=== PATIENT | female | born 1970 | race Caucasian/White ===

== ENCOUNTER 2018-12-27 12:46 | Inpatient (IN) | payer OTHER ==
[2018-12-27] MEDS: SOD CHLORIDE 0.9% 1,000 ML IV ×2 (13:10→14:18)
[2018-12-27] MEDS: ONDANSETRON 4 MG INJ IV ×2 (13:10→21:44)
[2018-12-27 13:19] LABS: ADD MAN DIFF? NO
[2018-12-27 13:24] LABS: BASOPHILS % 0.2 % (0.0-2.0); HEMATOCRIT 46.3 % (37.0-47.0); HEMOGLOBIN 14.7 g/dl (12.0-16.0); LYMPHOCYTES # 1.3 10^3/ul (0.8-2.9); LYMPHOCYTES % 15.3 % (15.0-51.0); MEAN CORPUSCULAR HEMOGLOBIN 26.1 pg (29.0-33.0); MEAN CORPUSCULAR HGB CONC 31.7 g/dl (32.0-37.0); MEAN CORPUSCULAR VOLUME 82.1 fl (82.0-101.0); MEAN PLATELET VOLUME 10.8 fl (7.4-10.4); MONOCYTE # 0.7 10^3/ul (0.3-0.9); MONOCYTES % 7.9 % (0.0-11.0); NEUTROPHIL # 6.5 10^3/ul (1.6-7.5); NEUTROPHILS % 76.2 % (39.0-77.0); PLATELET COUNT 405 10^3/UL (140-415); RED BLOOD COUNT 5.64 10^6/ul (4.20-5.40); RED CELL DISTRIBUTION WIDTH 19.4 % (11.5-14.5)
[2018-12-27 13:24] LABS: WHITE BLOOD COUNT 8.5 10^3/ul (4.8-10.8)
[2018-12-27 13:43] LABS: ALANINE AMINOTRANSFERASE 58 IU/L (13-69); ALBUMIN 4.8 g/dl (3.3-4.9); ALKALINE PHOSPHATASE 126 IU/L (42-121); AMYLASE 80 U/L (11-123); ASPARTATE AMINO TRANSFERASE 23 IU/L (15-46); BILIRUBIN,INDIRECT 0.3 mg/dl (0-1.1); BILIRUBIN,TOTAL 0.3 mg/dl (0.2-1.3); BLOOD UREA NITROGEN 73 mg/dl (7-20); CALCIUM 10.2 mg/dl (8.4-10.2); CHLORIDE 58 mmol/L (97-110); CREATININE 1.81 mg/dl (0.44-1.00); Estimated GFR 30 mL/min (>60); GLUCOSE 154 mg/dl (70-220); LIPASE 108 U/L (23-300); SODIUM 135 mmol/L (135-144); TOTAL PROTEIN 10.1 g/dl (6.1-8.1)
[2018-12-27 13:44] LABS: INR 0.96; PARTIAL THROMBOPLASTIN TIME 26.4 Sec (23.0-35.0); PROTIME 12.9 Sec (11.9-14.9)
[2018-12-27 13:46] LABS: LACTIC ACID 2.3 mmol/L (0.5-2.0)
[2018-12-27 13:51] LABS: ANION GAP 27 (5-13)
[2018-12-27 13:53] LABS: CARBON DIOXIDE 50 mmol/L (21-31); POTASSIUM 2.7 mmol/L (3.5-5.1)
[2018-12-27 13:54] LABS: TROPONIN-I 0.032 ng/ml (0.000-0.120)
[2018-12-27] MEDS: morphine 4 MG/ML VIAL IV (14:01)
[2018-12-27] MEDS: CEFEPIME 2GM/50 ML (PMX) 50 ML IVPB (14:17)
[2018-12-27] MEDS ORDERED: METOCLOPRAMIDE 10 MG INJ (14:51)
[2018-12-27] MEDS: VANCOMYCIN 1 GM (PMX) 250 ML IVPB (14:57)
[2018-12-27 15:00] LABS: ADD UMIC YES; UR ASCORBIC ACID NEGATIVE (NEGATIVE); UR BACTERIA FEW /HPF (NONE SEEN); UR BILIRUBIN (Dip) NEGATIVE (NEGATIVE); UR BLOOD (Dip) 1+ mg/dL (NEGATIVE); UR CLARITY CLOUDY (CLEAR); UR COLOR YELLOW (YELLOW); UR GLUCOSE (Dip) NEGATIVE (NEGATIVE); UR KETONES (Dip) 2+ mg/dL (NEGATIVE); UR LEUKOCYTE ESTERASE (Dip) NEGATIVE Leu/ul (NEGATIVE); UR MUCUS FEW /HPF (NONE SEEN); UR NITRITE (Dip) NEGATIVE (NEGATIVE); UR RBC 11 /HPF (0-5); UR SPECIFIC GRAVITY (Dip) 1.016 (1.003-1.030); UR SQUAMOUS EPITHELIAL CELL FEW /HPF (FEW); UR TOTAL PROTEIN (Dip) 2+ mg/dl (NEGATIVE); UR UROBILINOGEN (Dip) NEGATIVE (NEGATIVE); UR WBC 5 /HPF (0-5)
[2018-12-27] MEDS: METOCLOPRAMIDE 10 MG INJ IV (15:35)
[2018-12-27] MEDS ORDERED: NACL 0.9% 3 ML SYG IV (18:00)
[2018-12-27] MEDS ORDERED: ACETAMINOPHEN 325 MG TAB PO (19:00)
[2018-12-27] MEDS ORDERED: ONDANSETRON 4 MG INJ IV (19:00)
[2018-12-27] MEDS: POTASSIUM CHLORIDE (SR) 20 MEQ TAB PO (19:35)
[2018-12-27] MEDS: POTASSIUM CHLORIDE 100 ML IVPB ×3 (19:35→22:13)
[2018-12-27] MEDS: DEXTROSE 5%-0.45% NACL 1,000 ML IV (19:43)
[2018-12-27] MEDS: FAMOTIDINE 20 MG TAB PO (21:00)
[2018-12-28] MEDS: DEXTROSE 5%-0.45% NACL 1,000 ML IV ×6 (01:41→20:20)
[2018-12-28 06:17] LABS: ADD MAN DIFF? NO
[2018-12-28 06:20] LABS: WHITE BLOOD COUNT 8.7 10^3/ul (4.8-10.8)
[2018-12-28 06:20] LABS: BASOPHILS % 0.2 % (0.0-2.0); EOSINOPHILS # 0.1 10^3/ul (0.0-0.5); EOSINOPHILS % 1.2 % (0.0-7.0); HEMATOCRIT 38.1 % (37.0-47.0); HEMOGLOBIN 11.9 g/dl (12.0-16.0); LYMPHOCYTES # 1.5 10^3/ul (0.8-2.9); LYMPHOCYTES % 16.9 % (15.0-51.0); MEAN CORPUSCULAR HEMOGLOBIN 26.1 pg (29.0-33.0); MEAN CORPUSCULAR HGB CONC 31.2 g/dl (32.0-37.0); MEAN CORPUSCULAR VOLUME 83.6 fl (82.0-101.0); MEAN PLATELET VOLUME 11.2 fl (7.4-10.4); MONOCYTE # 0.8 10^3/ul (0.3-0.9); MONOCYTES % 8.7 % (0.0-11.0); NEUTROPHIL # 6.3 10^3/ul (1.6-7.5); NEUTROPHILS % 72.5 % (39.0-77.0); PLATELET COUNT 330 10^3/UL (140-415); RED BLOOD COUNT 4.56 10^6/ul (4.20-5.40); RED CELL DISTRIBUTION WIDTH 19.8 % (11.5-14.5)
[2018-12-28 06:41] LABS: ALANINE AMINOTRANSFERASE 44 IU/L (13-69); ALBUMIN 3.8 g/dl (3.3-4.9); ALBUMIN/GLOBULIN RATIO 0.86; ALKALINE PHOSPHATASE 90 IU/L (42-121); ASPARTATE AMINO TRANSFERASE 19 IU/L (15-46); BILIRUBIN,INDIRECT 0.2 mg/dl (0-1.1); BILIRUBIN,TOTAL 0.2 mg/dl (0.2-1.3); BLOOD UREA NITROGEN 48 mg/dl (7-20); CALCIUM 9.1 mg/dl (8.4-10.2); CHLORIDE 78 mmol/L (97-110); CREATININE 1.13 mg/dl (0.44-1.00); Estimated GFR 51 mL/min (>60); GLUCOSE 170 mg/dl (70-220); SODIUM 138 mmol/L (135-144); TOTAL PROTEIN 8.2 g/dl (6.1-8.1)
[2018-12-28 06:44] LABS: POTASSIUM 2.5 mmol/L (3.5-5.1)
[2018-12-28 06:48] LABS: HEMOGLOBIN A1C 5.4 % (0-5.9)
[2018-12-28 06:48] LABS: ANION GAP 9 (5-13)
[2018-12-28 06:49] LABS: CARBON DIOXIDE 51 mmol/L (21-31)
[2018-12-28] MEDS: FAMOTIDINE 20 MG TAB PO ×2 (08:26→21:00)
[2018-12-28] MEDS: SOD CHLORIDE 0.9% 1,000 ML IV ×2 (08:26→13:15)
[2018-12-28] MEDS: ONDANSETRON 4 MG INJ IV ×3 (08:26→21:54)
[2018-12-28] MEDS: POTASSIUM CHLORIDE 100 ML IVPB ×6 (09:11→23:50)
[2018-12-28 09:23] LABS: MAGNESIUM 2.7 mg/dl (1.7-2.5)
[2018-12-28] MEDS ORDERED: IOHEXOL 14.3 MG(I)/ML (ADULT) BTL PO (09:30)
[2018-12-28] MEDS ORDERED: POTASSIUM CHLORIDE 100 ML IVPB (10:00)
[2018-12-28] MEDS: LORAZEPAM 2 MG INJ IV ×2 (10:06→16:45)
[2018-12-28 15:32] LABS: BLOOD UREA NITROGEN 35 mg/dl (7-20); CALCIUM 8.6 mg/dl (8.4-10.2); CHLORIDE 86 mmol/L (97-110); CREATININE 0.96 mg/dl (0.44-1.00); Estimated GFR > 60 mL/min (>60); GLUCOSE 113 mg/dl (70-220); SODIUM 137 mmol/L (135-144)
[2018-12-28 15:53] LABS: ANION GAP 9 (5-13)
[2018-12-28 15:55] LABS: CARBON DIOXIDE 42 mmol/L (21-31); POTASSIUM 2.9 mmol/L (3.5-5.1)
[2018-12-28] MEDS: SOD CHLORIDE 0.9% 100 ML (17:22)
[2018-12-28] MEDS: IOHEXOL 300MG/ML 150 ML BTL (17:22)
[2018-12-28] MEDS: IOHEXOL 14.3 MG(I)/ML (ADULT) BTL PO (18:34)
[2018-12-28] MEDS: PIPER-TAZO 3.375 GM IV (PMX) 100 ML IVPB (18:58)
[2018-12-28] MEDS: metroNIDAZOLE 500 MG/NS (PMX) 100 ML IVPB (22:29)
[2018-12-29] MEDS: LORAZEPAM 2 MG INJ IV ×2 (00:19→15:28)
[2018-12-29] MEDS: DEXTROSE 5%-0.45% NACL 1,000 ML IV ×3 (03:00→14:03)
[2018-12-29] MEDS: PIPER-TAZO 3.375 GM IV (PMX) 100 ML IVPB ×3 (05:06→21:00)
[2018-12-29] MEDS: ONDANSETRON 4 MG INJ IV ×2 (05:08→20:58)
[2018-12-29] MEDS: metroNIDAZOLE 500 MG/NS (PMX) 100 ML IVPB ×3 (05:52→21:56)
[2018-12-29 06:19] LABS: ADD MAN DIFF? NO
[2018-12-29 06:22] LABS: BASOPHILS % 0.5 % (0.0-2.0); EOSINOPHILS # 0.4 10^3/ul (0.0-0.5); EOSINOPHILS % 6.6 % (0.0-7.0); HEMATOCRIT 36.4 % (37.0-47.0); HEMOGLOBIN 11.1 g/dl (12.0-16.0); LYMPHOCYTES # 1.1 10^3/ul (0.8-2.9); LYMPHOCYTES % 17.1 % (15.0-51.0); MEAN CORPUSCULAR HEMOGLOBIN 26.1 pg (29.0-33.0); MEAN CORPUSCULAR HGB CONC 30.5 g/dl (32.0-37.0); MEAN CORPUSCULAR VOLUME 85.4 fl (82.0-101.0); MONOCYTE # 0.6 10^3/ul (0.3-0.9); MONOCYTES % 8.5 % (0.0-11.0); NEUTROPHIL # 4.4 10^3/ul (1.6-7.5); NEUTROPHILS % 66.8 % (39.0-77.0); PLATELET COUNT 268 10^3/UL (140-415); RED BLOOD COUNT 4.26 10^6/ul (4.20-5.40); RED CELL DISTRIBUTION WIDTH 19.8 % (11.5-14.5)
[2018-12-29 06:22] LABS: WHITE BLOOD COUNT 6.6 10^3/ul (4.8-10.8)
[2018-12-29 07:00] LABS: BLOOD UREA NITROGEN 25 mg/dl (7-20); CALCIUM 8.8 mg/dl (8.4-10.2); CHLORIDE 90 mmol/L (97-110); CREATININE 0.94 mg/dl (0.44-1.00); Estimated GFR > 60 mL/min (>60); GLUCOSE 143 mg/dl (70-220); POTASSIUM 3.2 mmol/L (3.5-5.1); SODIUM 136 mmol/L (135-144)
[2018-12-29 07:07] LABS: ANION GAP 9 (5-13)
[2018-12-29 07:11] LABS: CARBON DIOXIDE 37 mmol/L (21-31)
[2018-12-29] MEDS: FAMOTIDINE 20 MG TAB PO ×2 (08:44→20:03)
[2018-12-29] MEDS: POTASSIUM CHLORIDE 100 ML IVPB ×2 (09:18→11:37)
[2018-12-30] MEDS: DEXTROSE 5%-0.45% NACL 1,000 ML IV ×4 (00:12→21:58)
[2018-12-30] MEDS: PIPER-TAZO 3.375 GM IV (PMX) 100 ML IVPB ×3 (05:00→21:59)
[2018-12-30] MEDS: ONDANSETRON 4 MG INJ IV ×5 (05:39→22:15)
[2018-12-30] MEDS: metroNIDAZOLE 500 MG/NS (PMX) 100 ML IVPB ×3 (05:41→21:59)
[2018-12-30] MEDS: FAMOTIDINE 20 MG TAB PO ×2 (09:00→21:00)
[2018-12-30] MEDS: morphine 2 MG INJ IV ×3 (09:52→22:23)
[2018-12-30 11:01] LABS: ANION GAP 5 (5-13); BLOOD UREA NITROGEN 17 mg/dl (7-20); CALCIUM 8.9 mg/dl (8.4-10.2); CARBON DIOXIDE 37 mmol/L (21-31); CHLORIDE 92 mmol/L (97-110); CREATININE 0.84 mg/dl (0.44-1.00); Estimated GFR > 60 mL/min (>60); GLUCOSE 126 mg/dl (70-220); POTASSIUM 3.1 mmol/L (3.5-5.1); SODIUM 134 mmol/L (135-144)
[2018-12-30] MEDS: LIDOCAINE 2% (SDV) 5 ML INJ (12:14)
[2018-12-30] MEDS: PROPOFOL 20 ML (12:14)
[2018-12-30] MEDS ORDERED: ACETAMINOPHEN 500 MG TAB PO (12:30)
[2018-12-30] MEDS ORDERED: ALBUTEROL 0.083% (NEB) 2.5 MG/3 ML AMP HHN (12:30)
[2018-12-30] MEDS ORDERED: FENTAnyl 50 MCG/ML VIAL IV (12:30)
[2018-12-30] MEDS: POTASSIUM CHLORIDE 100 ML IVPB ×2 (21:58→21:59)
[2018-12-31] MEDS ORDERED: METOCLOPRAMIDE 10 MG INJ IV (01:00)
[2018-12-31] MEDS: DEXTROSE 5%-0.45% NACL 1,000 ML IV ×4 (01:46→21:17)
[2018-12-31] MEDS: ONDANSETRON 4 MG INJ IV ×3 (05:49→21:17)
[2018-12-31] MEDS: PIPER-TAZO 3.375 GM IV (PMX) 100 ML IVPB ×3 (05:49→22:00)
[2018-12-31] MEDS: metroNIDAZOLE 500 MG/NS (PMX) 100 ML IVPB ×3 (05:49→21:16)
[2018-12-31 06:18] LABS: ANION GAP 3 (5-13); BLOOD UREA NITROGEN 11 mg/dl (7-20); CALCIUM 8.8 mg/dl (8.4-10.2); CARBON DIOXIDE 35 mmol/L (21-31); CHLORIDE 98 mmol/L (97-110); CREATININE 0.87 mg/dl (0.44-1.00); Estimated GFR > 60 mL/min (>60); GLUCOSE 136 mg/dl (70-220); PHOSPHORUS 3.3 mg/dl (2.5-4.9); POTASSIUM 3.8 mmol/L (3.5-5.1); SODIUM 136 mmol/L (135-144)
[2018-12-31] MEDS: FAMOTIDINE 20 MG TAB PO ×2 (08:23→21:17)
[2018-12-31] MEDS: BARIUM SULFATE 135 ML (E-Z HD) PO (12:31)
[2019-01-01] MEDS: DEXTROSE 5%-0.45% NACL 1,000 ML IV ×4 (04:11→21:15)
[2019-01-01] MEDS: metroNIDAZOLE 500 MG/NS (PMX) 100 ML IVPB ×3 (05:45→21:07)
[2019-01-01] MEDS: PIPER-TAZO 3.375 GM IV (PMX) 100 ML IVPB ×3 (06:41→23:02)
[2019-01-01] MEDS: ONDANSETRON 4 MG INJ IV ×2 (08:36→14:46)
[2019-01-01] MEDS: FAMOTIDINE 20 MG TAB PO ×2 (08:36→21:07)
[2019-01-02 05:42] LABS: ANION GAP 8 (5-13); BLOOD UREA NITROGEN 9 mg/dl (7-20); CALCIUM 8.5 mg/dl (8.4-10.2); CARBON DIOXIDE 37 mmol/L (21-31); CHLORIDE 92 mmol/L (97-110); CREATININE 0.68 mg/dl (0.44-1.00); Estimated GFR > 60 mL/min (>60); GLUCOSE 148 mg/dl (70-220); MAGNESIUM 1.9 mg/dl (1.7-2.5); PHOSPHORUS 2.9 mg/dl (2.5-4.9); SODIUM 137 mmol/L (135-144)
[2019-01-02 05:48] LABS: POTASSIUM 2.7 mmol/L (3.5-5.1)
[2019-01-02] MEDS: metroNIDAZOLE 500 MG/NS (PMX) 100 ML IVPB ×2 (06:05→15:00)
[2019-01-02] MEDS: ONDANSETRON 4 MG INJ IV ×2 (06:10→09:03)
[2019-01-02] MEDS: POTASSIUM CHLORIDE 20 MEQ POWDER FOR ORAL SOLN PO (06:17)
[2019-01-02] MEDS: DEXTROSE 5%-0.45% NACL 1,000 ML IV ×3 (06:19→21:00)
[2019-01-02] MEDS: PIPER-TAZO 3.375 GM IV (PMX) 100 ML IVPB ×3 (07:02→21:00)
[2019-01-02] MEDS: FAMOTIDINE 20 MG TAB PO ×2 (09:03→20:53)
[2019-01-02] MEDS: DIATR MEGLU/DIATRIZOATE SODIUM 120 ML BTL (09:38)
[2019-01-02] MEDS: BARIUM SULFATE 135 ML (E-Z HD) PO (09:40)
[2019-01-02] MEDS: LIDOCAINE 1% (MPF) 5 ML VIAL SC (12:00)
[2019-01-02] MEDS: POTASSIUM CHLORIDE 20 MEQ POWDER FOR ORAL SOLN NGT (12:00)
[2019-01-02] MEDS: POTASSIUM CHLORIDE 100 ML IVPB ×2 (16:52→20:53)
[2019-01-02 19:17] LABS: CARCINOEMBRYONIC ANTIGEN 1.8 ng/ml (0.0-5.0)
[2019-01-02 19:20] LABS: CANCER ANTIGEN 19-9 14.5 U/ml (0.0-37.0)
[2019-01-03] MEDS: DEXTROSE 5%-0.45% NACL 1,000 ML IV ×4 (03:56→21:06)
[2019-01-03] MEDS: PIPER-TAZO 3.375 GM IV (PMX) 100 ML IVPB ×3 (05:45→21:05)
[2019-01-03 06:53] LABS: ANION GAP 5 (5-13); BLOOD UREA NITROGEN 10 mg/dl (7-20); CALCIUM 8.7 mg/dl (8.4-10.2); CARBON DIOXIDE 38 mmol/L (21-31); CHLORIDE 94 mmol/L (97-110); CREATININE 0.61 mg/dl (0.44-1.00); Estimated GFR > 60 mL/min (>60); GLUCOSE 132 mg/dl (70-220); SODIUM 137 mmol/L (135-144)
[2019-01-03 07:09] LABS: POTASSIUM 2.9 mmol/L (3.5-5.1)
[2019-01-03] MEDS: METHYLNALTREXONE 12 MG/0.6 ML VIAL SC (08:30)
[2019-01-03] MEDS: FAMOTIDINE 20 MG TAB PO ×2 (09:03→21:05)
[2019-01-03] MEDS: POTASSIUM CHLORIDE 100 ML IVPB ×2 (11:20→16:18)
[2019-01-03] MEDS: PHENOL 1.4% SOLN 180 ML BTL MT (21:23)
[2019-01-04] MEDS: DEXTROSE 5%-0.45% NACL 1,000 ML IV (04:14)
[2019-01-04] MEDS: PIPER-TAZO 3.375 GM IV (PMX) 100 ML IVPB ×3 (05:06→21:51)
[2019-01-04 06:54] LABS: BLOOD UREA NITROGEN 13 mg/dl (7-20); CALCIUM 8.9 mg/dl (8.4-10.2); CHLORIDE 93 mmol/L (97-110); CREATININE 0.62 mg/dl (0.44-1.00); Estimated GFR > 60 mL/min (>60); GLUCOSE 128 mg/dl (70-220); SODIUM 139 mmol/L (135-144)
[2019-01-04 06:59] LABS: POTASSIUM 2.6 mmol/L (3.5-5.1)
[2019-01-04 08:01] LABS: ANION GAP 8 (5-13)
[2019-01-04 08:03] LABS: CARBON DIOXIDE 38 mmol/L (21-31)
[2019-01-04] MEDS: D5W-0.45 NACL + KCL 40 MEQ 1,000 ML IV ×2 (09:30→16:10)
[2019-01-04] MEDS: POTASSIUM CHLORIDE 100 ML IVPB ×2 (09:38→12:12)
[2019-01-04] MEDS: POTASSIUM CHLORIDE (SR) 20 MEQ TAB PO (09:38)
[2019-01-04] MEDS: FAMOTIDINE 20 MG TAB PO ×2 (09:38→20:28)
[2019-01-05] MEDS: D5W-0.45 NACL + KCL 40 MEQ 1,000 ML IV ×5 (00:52→19:24)
[2019-01-05 06:27] LABS: BLOOD UREA NITROGEN 15 mg/dl (7-20); CALCIUM 8.8 mg/dl (8.4-10.2); CHLORIDE 95 mmol/L (97-110); CREATININE 0.64 mg/dl (0.44-1.00); Estimated GFR > 60 mL/min (>60); GLUCOSE 133 mg/dl (70-220); POTASSIUM 3.2 mmol/L (3.5-5.1); SODIUM 139 mmol/L (135-144)
[2019-01-05] MEDS: PIPER-TAZO 3.375 GM IV (PMX) 100 ML IVPB ×3 (06:31→22:31)
[2019-01-05 06:36] LABS: ANION GAP 5 (5-13); CARBON DIOXIDE 39 mmol/L (21-31)
[2019-01-05] MEDS: METHYLNALTREXONE 12 MG/0.6 ML VIAL SC (08:30)
[2019-01-05] MEDS: FAMOTIDINE 20 MG TAB PO ×2 (09:16→20:59)
[2019-01-05] MEDS: IOHEXOL 14.3 MG(I)/ML (ADULT) BTL PO (15:37)
[2019-01-05] MEDS: SOD CHLORIDE 0.9% 100 ML (17:02)
[2019-01-05] MEDS: IOHEXOL 300MG/ML 150 ML BTL (17:03)
[2019-01-06] MEDS: D5W-0.45 NACL + KCL 40 MEQ 1,000 ML IV ×4 (03:01→21:30)
[2019-01-06] MEDS: PIPER-TAZO 3.375 GM IV (PMX) 100 ML IVPB (05:23)
[2019-01-06 05:26] LABS: ANION GAP 10 (5-13); BLOOD UREA NITROGEN 13 mg/dl (7-20); CALCIUM 8.8 mg/dl (8.4-10.2); CARBON DIOXIDE 35 mmol/L (21-31); CHLORIDE 96 mmol/L (97-110); CREATININE 0.61 mg/dl (0.44-1.00); Estimated GFR > 60 mL/min (>60); GLUCOSE 136 mg/dl (70-220); POTASSIUM 3.8 mmol/L (3.5-5.1); SODIUM 141 mmol/L (135-144)
[2019-01-06] MEDS ORDERED: PANTOPRAZOLE 40 MG INJ (08:37)
[2019-01-06] MEDS: FAMOTIDINE 20 MG TAB PO (09:00)
[2019-01-06] MEDS: PANTOPRAZOLE 40 MG INJ IV ×2 (09:10→18:08)
[2019-01-06] MEDS: ONDANSETRON 4 MG INJ IV (12:43)
[2019-01-07] MEDS: PANTOPRAZOLE 40 MG INJ IV ×2 (05:23→18:25)
[2019-01-07] MEDS: D5W-0.45 NACL + KCL 40 MEQ 1,000 ML IV ×4 (05:24→23:12)
[2019-01-07] MEDS: METHYLNALTREXONE 12 MG/0.6 ML VIAL SC (08:30)
[2019-01-07] MEDS ORDERED: PROPOFOL 20 ML ×2 (15:43→16:38)
[2019-01-07] MEDS ORDERED: FENTAnyl 50 MCG/ML VIAL (15:43)
[2019-01-07] MEDS ORDERED: MEPERIDINE 25 MG INJ IV (16:30)
[2019-01-07] MEDS ORDERED: HYDROmorphONE 1 MG/5 ML IV SYRINGE IV ×3 (16:30)
[2019-01-07] MEDS ORDERED: DIPHENHYDRAMINE 50 MG INJ IV (16:30)
[2019-01-07] MEDS ORDERED: LABETALOL HCL 20MG INJ IV (16:30)
[2019-01-07] MEDS ORDERED: hydrALAzine 20 MG INJ IV (16:30)
[2019-01-07] MEDS ORDERED: METOCLOPRAMIDE 10 MG INJ (16:50)
[2019-01-07] MEDS ORDERED: ONDANSETRON 4 MG INJ (16:50)
[2019-01-07] MEDS ORDERED: SUCCINYLCHOLINE CHLORIDE 100 MG/5 ML SYG IV (16:52)
[2019-01-07] MEDS: ONDANSETRON 4 MG INJ IV ×2 (17:55→20:30)
[2019-01-07] MEDS: morphine LIQ (10 MG/5 ML) CUP PO (20:26)
[2019-01-08] MEDS: morphine 2 MG INJ IV ×3 (04:37→20:09)
[2019-01-08 05:14] LABS: ADD MAN DIFF? NO
[2019-01-08 05:16] LABS: BASOPHILS % 0.2 % (0.0-2.0); EOSINOPHILS % 0.6 % (0.0-7.0); HEMATOCRIT 33.6 % (37.0-47.0); HEMOGLOBIN 10.5 g/dl (12.0-16.0); LYMPHOCYTES # 0.8 10^3/ul (0.8-2.9); LYMPHOCYTES % 14.2 % (15.0-51.0); MEAN CORPUSCULAR HEMOGLOBIN 26.6 pg (29.0-33.0); MEAN CORPUSCULAR HGB CONC 31.3 g/dl (32.0-37.0); MEAN CORPUSCULAR VOLUME 85.1 fl (82.0-101.0); MEAN PLATELET VOLUME 9.9 fl (7.4-10.4); MONOCYTE # 0.3 10^3/ul (0.3-0.9); MONOCYTES % 5.1 % (0.0-11.0); NEUTROPHIL # 4.3 10^3/ul (1.6-7.5); NEUTROPHILS % 79.3 % (39.0-77.0); PLATELET COUNT 285 10^3/UL (140-415); RED BLOOD COUNT 3.95 10^6/ul (4.20-5.40); RED CELL DISTRIBUTION WIDTH 20.5 % (11.5-14.5)
[2019-01-08 05:16] LABS: WHITE BLOOD COUNT 5.4 10^3/ul (4.8-10.8)
[2019-01-08] MEDS: PANTOPRAZOLE 40 MG INJ IV ×2 (05:33→17:56)
[2019-01-08 05:36] LABS: MAGNESIUM 1.5 mg/dl (1.7-2.5)
[2019-01-08 05:38] LABS: ANION GAP 11 (5-13); BLOOD UREA NITROGEN 12 mg/dl (7-20); CALCIUM 8.9 mg/dl (8.4-10.2); CARBON DIOXIDE 24 mmol/L (21-31); CHLORIDE 103 mmol/L (97-110); CREATININE 0.53 mg/dl (0.44-1.00); Estimated GFR > 60 mL/min (>60); GLUCOSE 128 mg/dl (70-220); POTASSIUM 5.3 mmol/L (3.5-5.1); SODIUM 138 mmol/L (135-144)
[2019-01-08] MEDS: ONDANSETRON 4 MG INJ IV ×2 (05:38→20:10)
[2019-01-08] MEDS: D5W-0.45 NACL + KCL 40 MEQ 1,000 ML IV (05:39)
[2019-01-08] MEDS: METOCLOPRAMIDE 10 MG INJ IV ×2 (11:52→18:00)
[2019-01-08] MEDS: DEXTROSE 5%-0.45% NACL 1,000 ML IV (12:00)
[2019-01-08] MEDS: MAGNESIUM SULFATE 2 GM/50 ML 50 ML IVPB (13:39)
[2019-01-09] MEDS: DEXTROSE 5%-0.45% NACL 1,000 ML IV ×4 (00:26→20:47)
[2019-01-09] MEDS: morphine 2 MG INJ IV ×2 (00:30→19:45)
[2019-01-09] MEDS: PANTOPRAZOLE 40 MG INJ IV ×2 (05:34→17:25)
[2019-01-09] MEDS: METOCLOPRAMIDE 10 MG INJ IV ×4 (05:36→17:26)
[2019-01-09] MEDS: METHYLNALTREXONE 12 MG/0.6 ML VIAL SC (08:04)
[2019-01-09] MEDS: ONDANSETRON 4 MG INJ IV (20:44)
[2019-01-10] MEDS: METOCLOPRAMIDE 10 MG INJ IV ×4 (00:10→18:00)
[2019-01-10 06:12] LABS: ADD MAN DIFF? NO
[2019-01-10 06:22] LABS: WHITE BLOOD COUNT 5.4 10^3/ul (4.8-10.8)
[2019-01-10 06:22] LABS: BASOPHILS % 0.4 % (0.0-2.0); EOSINOPHILS # 0.1 10^3/ul (0.0-0.5); HEMATOCRIT 31.2 % (37.0-47.0); LYMPHOCYTES # 1.3 10^3/ul (0.8-2.9); LYMPHOCYTES % 24.4 % (15.0-51.0); MEAN CORPUSCULAR HEMOGLOBIN 26.5 pg (29.0-33.0); MEAN CORPUSCULAR HGB CONC 32.1 g/dl (32.0-37.0); MEAN CORPUSCULAR VOLUME 82.5 fl (82.0-101.0); MEAN PLATELET VOLUME 9.8 fl (7.4-10.4); MONOCYTE # 0.5 10^3/ul (0.3-0.9); MONOCYTES % 9.7 % (0.0-11.0); NEUTROPHIL # 3.4 10^3/ul (1.6-7.5); NEUTROPHILS % 62.9 % (39.0-77.0); PLATELET COUNT 261 10^3/UL (140-415); RED BLOOD COUNT 3.78 10^6/ul (4.20-5.40); RED CELL DISTRIBUTION WIDTH 20.2 % (11.5-14.5)
[2019-01-10] MEDS: PANTOPRAZOLE 40 MG INJ IV ×2 (06:27→18:00)
[2019-01-10 07:03] LABS: ALBUMIN 2.8 g/dl (3.3-4.9); ANION GAP 11 (5-13); BLOOD UREA NITROGEN 15 mg/dl (7-20); CALCIUM 8.6 mg/dl (8.4-10.2); CARBON DIOXIDE 22 mmol/L (21-31); CHLORIDE 102 mmol/L (97-110); CREATININE 0.51 mg/dl (0.44-1.00); GLUCOSE 103 mg/dl (70-220); MAGNESIUM 1.9 mg/dl (1.7-2.5); POTASSIUM 4.2 mmol/L (3.5-5.1); SODIUM 135 mmol/L (135-144)
[2019-01-10] MEDS: DEXTROSE 5%-0.45% NACL 1,000 ML IV ×2 (07:42→18:52)
[2019-01-10] MEDS: ONDANSETRON 4 MG INJ IV (16:57)
[2019-01-11 05:27] LABS: ADD MAN DIFF? NO
[2019-01-11 05:29] LABS: BASOPHILS % 0.4 % (0.0-2.0); EOSINOPHILS # 0.1 10^3/ul (0.0-0.5); EOSINOPHILS % 1.7 % (0.0-7.0); HEMATOCRIT 30.7 % (37.0-47.0); HEMOGLOBIN 10.1 g/dl (12.0-16.0); LYMPHOCYTES # 1.3 10^3/ul (0.8-2.9); LYMPHOCYTES % 24.3 % (15.0-51.0); MEAN CORPUSCULAR HEMOGLOBIN 26.5 pg (29.0-33.0); MEAN CORPUSCULAR HGB CONC 32.9 g/dl (32.0-37.0); MEAN CORPUSCULAR VOLUME 80.6 fl (82.0-101.0); MEAN PLATELET VOLUME 9.7 fl (7.4-10.4); MONOCYTE # 0.5 10^3/ul (0.3-0.9); MONOCYTES % 9.1 % (0.0-11.0); NEUTROPHIL # 3.5 10^3/ul (1.6-7.5); NEUTROPHILS % 64.1 % (39.0-77.0); PLATELET COUNT 281 10^3/UL (140-415); RED BLOOD COUNT 3.81 10^6/ul (4.20-5.40)
[2019-01-11 05:29] LABS: WHITE BLOOD COUNT 5.4 10^3/ul (4.8-10.8)
[2019-01-11] MEDS: METOCLOPRAMIDE 10 MG INJ IV ×4 (05:43→18:09)
[2019-01-11] MEDS: DEXTROSE 5%-0.45% NACL 1,000 ML IV ×2 (05:43→18:10)
[2019-01-11] MEDS: PANTOPRAZOLE 40 MG INJ IV ×2 (05:43→18:09)
[2019-01-11 05:55] LABS: ANION GAP 8 (5-13); BLOOD UREA NITROGEN 15 mg/dl (7-20); CALCIUM 8.9 mg/dl (8.4-10.2); CARBON DIOXIDE 22 mmol/L (21-31); CHLORIDE 107 mmol/L (97-110); CREATININE 0.55 mg/dl (0.44-1.00); GLUCOSE 115 mg/dl (70-220); MAGNESIUM 1.9 mg/dl (1.7-2.5); POTASSIUM 3.4 mmol/L (3.5-5.1); SODIUM 137 mmol/L (135-144)
[2019-01-11] MEDS: METHYLNALTREXONE 12 MG/0.6 ML VIAL SC (08:30)
[2019-01-11] MEDS: ONDANSETRON 4 MG INJ IV (09:07)
[2019-01-11] MEDS: POTASSIUM CHLORIDE 100 ML IVPB ×2 (11:05→12:22)
[2019-01-11] MEDS: BISACODYL 10 MG SUPP PR (12:22)
[2019-01-12] MEDS: METOCLOPRAMIDE 10 MG INJ IV ×4 (00:02→21:33)
[2019-01-12] MEDS: DEXTROSE 5%-0.45% NACL 1,000 ML IV ×2 (02:49→13:16)
[2019-01-12 05:09] LABS: ADD MAN DIFF? NO
[2019-01-12 05:19] LABS: WHITE BLOOD COUNT 5.7 10^3/ul (4.8-10.8)
[2019-01-12 05:19] LABS: BASOPHILS % 0.5 % (0.0-2.0); EOSINOPHILS # 0.1 10^3/ul (0.0-0.5); EOSINOPHILS % 1.6 % (0.0-7.0); HEMATOCRIT 29.5 % (37.0-47.0); HEMOGLOBIN 9.9 g/dl (12.0-16.0); LYMPHOCYTES # 1.1 10^3/ul (0.8-2.9); MEAN CORPUSCULAR HGB CONC 33.6 g/dl (32.0-37.0); MEAN CORPUSCULAR VOLUME 80.6 fl (82.0-101.0); MONOCYTE # 0.6 10^3/ul (0.3-0.9); NEUTROPHIL # 3.9 10^3/ul (1.6-7.5); NEUTROPHILS % 67.7 % (39.0-77.0); PLATELET COUNT 274 10^3/UL (140-415); RED BLOOD COUNT 3.66 10^6/ul (4.20-5.40); RED CELL DISTRIBUTION WIDTH 19.9 % (11.5-14.5)
[2019-01-12 05:39] LABS: ANION GAP 9 (5-13); BLOOD UREA NITROGEN 16 mg/dl (7-20); CARBON DIOXIDE 21 mmol/L (21-31); CHLORIDE 107 mmol/L (97-110); CREATININE 0.56 mg/dl (0.44-1.00); GLUCOSE 121 mg/dl (70-220); MAGNESIUM 1.9 mg/dl (1.7-2.5); PHOSPHORUS 3.8 mg/dl (2.5-4.9); POTASSIUM 3.7 mmol/L (3.5-5.1); SODIUM 137 mmol/L (135-144)
[2019-01-12] MEDS: PANTOPRAZOLE 40 MG INJ IV ×2 (05:45→21:33)
[2019-01-12] MEDS ORDERED: TPN 1,000 ML IV (14:42)
[2019-01-12 15:04] LABS: TRIGLYCERIDES 91 mg/dl (0-149)
[2019-01-12 15:34] LABS: PREALBUMIN 9.9 mg/dl (17.6-36.0)
[2019-01-12] MEDS: ACCU-CHEK XX ×2 (20:00→21:00)
[2019-01-12] MEDS: TPN 1,000 ML IV (21:34)
[2019-01-13] MEDS: ACCU-CHEK XX ×6 (01:00→21:00)
[2019-01-13] MEDS: METOCLOPRAMIDE 10 MG INJ IV ×4 (01:06→18:58)
[2019-01-13] MEDS: ONDANSETRON 4 MG INJ IV (02:17)
[2019-01-13] MEDS: PANTOPRAZOLE 40 MG INJ IV ×2 (05:19→18:57)
[2019-01-13 05:31] LABS: ADD MAN DIFF? NO
[2019-01-13 05:57] LABS: BASOPHILS % 0.5 % (0.0-2.0); EOSINOPHILS # 0.2 10^3/ul (0.0-0.5); EOSINOPHILS % 3.5 % (0.0-7.0); HEMATOCRIT 30.5 % (37.0-47.0); HEMOGLOBIN 9.9 g/dl (12.0-16.0); LYMPHOCYTES # 1.5 10^3/ul (0.8-2.9); LYMPHOCYTES % 24.9 % (15.0-51.0); MEAN CORPUSCULAR HEMOGLOBIN 26.7 pg (29.0-33.0); MEAN CORPUSCULAR HGB CONC 32.5 g/dl (32.0-37.0); MEAN CORPUSCULAR VOLUME 82.2 fl (82.0-101.0); MEAN PLATELET VOLUME 9.8 fl (7.4-10.4); MONOCYTE # 0.6 10^3/ul (0.3-0.9); MONOCYTES % 10.4 % (0.0-11.0); NEUTROPHIL # 3.7 10^3/ul (1.6-7.5); NEUTROPHILS % 60.4 % (39.0-77.0); PLATELET COUNT 299 10^3/UL (140-415); RED BLOOD COUNT 3.71 10^6/ul (4.20-5.40); RED CELL DISTRIBUTION WIDTH 19.5 % (11.5-14.5)
[2019-01-13 05:57] LABS: WHITE BLOOD COUNT 6.1 10^3/ul (4.8-10.8)
[2019-01-13 06:37] LABS: ALANINE AMINOTRANSFERASE 41 IU/L (13-69); ALBUMIN 3.1 g/dl (3.3-4.9); ALBUMIN/GLOBULIN RATIO 0.83; ALKALINE PHOSPHATASE 100 IU/L (42-121); ANION GAP 8 (5-13); ASPARTATE AMINO TRANSFERASE 18 IU/L (15-46); BILIRUBIN,INDIRECT 0.1 mg/dl (0-1.1); BILIRUBIN,TOTAL 0.1 mg/dl (0.2-1.3); BLOOD UREA NITROGEN 20 mg/dl (7-20); CARBON DIOXIDE 23 mmol/L (21-31); CHLORIDE 105 mmol/L (97-110); CREATININE 0.53 mg/dl (0.44-1.00); Estimated GFR > 60 mL/min (>60); GLUCOSE 114 mg/dl (70-220); PHOSPHORUS 3.5 mg/dl (2.5-4.9); POTASSIUM 3.5 mmol/L (3.5-5.1); SODIUM 136 mmol/L (135-144); TOTAL PROTEIN 6.8 g/dl (6.1-8.1)
[2019-01-13 06:50] LABS: MAGNESIUM 1.9 mg/dl (1.7-2.5)
[2019-01-13] MEDS: METHYLNALTREXONE 12 MG/0.6 ML VIAL SC (08:30)
[2019-01-13] MEDS: POTASSIUM CHLORIDE 20 MEQ /SW 100 ML IVPB (10:13)
[2019-01-13] MEDS: TPN 1,000 ML IV (13:23)
[2019-01-13] MEDS: FAT EMULSION 20% 250 ML IV (16:57)
[2019-01-14] MEDS: METOCLOPRAMIDE 10 MG INJ IV ×5 (00:04→23:54)
[2019-01-14] MEDS: PANTOPRAZOLE 40 MG INJ IV ×2 (05:20→18:42)
[2019-01-14 05:21] LABS: ADD MAN DIFF? NO
[2019-01-14 05:31] LABS: BASOPHILS % 0.4 % (0.0-2.0); EOSINOPHILS # 0.3 10^3/ul (0.0-0.5); HEMATOCRIT 32.8 % (37.0-47.0); HEMOGLOBIN 11.1 g/dl (12.0-16.0); LYMPHOCYTES # 1.6 10^3/ul (0.8-2.9); LYMPHOCYTES % 23.3 % (15.0-51.0); MEAN CORPUSCULAR HEMOGLOBIN 27.7 pg (29.0-33.0); MEAN CORPUSCULAR HGB CONC 33.8 g/dl (32.0-37.0); MEAN CORPUSCULAR VOLUME 81.8 fl (82.0-101.0); MEAN PLATELET VOLUME 10.1 fl (7.4-10.4); MONOCYTE # 0.6 10^3/ul (0.3-0.9); MONOCYTES % 9.1 % (0.0-11.0); NEUTROPHIL # 4.3 10^3/ul (1.6-7.5); NEUTROPHILS % 62.6 % (39.0-77.0); PLATELET COUNT 326 10^3/UL (140-415); RED BLOOD COUNT 4.01 10^6/ul (4.20-5.40); RED CELL DISTRIBUTION WIDTH 19.2 % (11.5-14.5)
[2019-01-14 05:31] LABS: WHITE BLOOD COUNT 6.8 10^3/ul (4.8-10.8)
[2019-01-14 05:40] LABS: MAGNESIUM 2.1 mg/dl (1.7-2.5)
[2019-01-14 05:40] LABS: PHOSPHORUS 3.4 mg/dl (2.5-4.9)
[2019-01-14 05:42] LABS: ALANINE AMINOTRANSFERASE 37 IU/L (13-69); ALBUMIN 3.4 g/dl (3.3-4.9); ALBUMIN/GLOBULIN RATIO 0.82; ALKALINE PHOSPHATASE 113 IU/L (42-121); ANION GAP 13 (5-13); ASPARTATE AMINO TRANSFERASE 18 IU/L (15-46); BLOOD UREA NITROGEN 32 mg/dl (7-20); CALCIUM 8.8 mg/dl (8.4-10.2); CARBON DIOXIDE 22 mmol/L (21-31); CHLORIDE 99 mmol/L (97-110); CREATININE 0.51 mg/dl (0.44-1.00); Estimated GFR > 60 mL/min (>60); GLUCOSE 159 mg/dl (70-220); POTASSIUM 3.6 mmol/L (3.5-5.1); SODIUM 134 mmol/L (135-144); TOTAL PROTEIN 7.5 g/dl (6.1-8.1)
[2019-01-14] MEDS: TPN 1,000 ML IV ×2 (06:41→22:33)
[2019-01-14] MEDS: ACCU-CHEK XX ×2 (09:00→21:39)
[2019-01-14] MEDS: POTASSIUM CHLORIDE 20 MEQ /SW 100 ML IVPB (09:20)
[2019-01-14] MEDS: FAT EMULSION 20% 250 ML IV (15:36)
[2019-01-14] MEDS: morphine 2 MG INJ IV (22:32)
[2019-01-15] MEDS: METOCLOPRAMIDE 10 MG INJ IV ×4 (05:13→22:40)
[2019-01-15] MEDS: PANTOPRAZOLE 40 MG INJ IV ×2 (05:13→18:00)
[2019-01-15 05:34] LABS: MAGNESIUM 2.2 mg/dl (1.7-2.5)
[2019-01-15 05:34] LABS: PHOSPHORUS 3.5 mg/dl (2.5-4.9)
[2019-01-15 05:46] LABS: ALANINE AMINOTRANSFERASE 48 IU/L (13-69); ALBUMIN 3.6 g/dl (3.3-4.9); ALBUMIN/GLOBULIN RATIO 0.83; ALKALINE PHOSPHATASE 145 IU/L (42-121); ANION GAP 12 (5-13); ASPARTATE AMINO TRANSFERASE 19 IU/L (15-46); BLOOD UREA NITROGEN 43 mg/dl (7-20); CALCIUM 9.3 mg/dl (8.4-10.2); CARBON DIOXIDE 23 mmol/L (21-31); CHLORIDE 100 mmol/L (97-110); CREATININE 0.62 mg/dl (0.44-1.00); Estimated GFR > 60 mL/min (>60); GLUCOSE 114 mg/dl (70-220); POTASSIUM 4.2 mmol/L (3.5-5.1); SODIUM 135 mmol/L (135-144); TOTAL PROTEIN 7.9 g/dl (6.1-8.1)
[2019-01-15] MEDS: METHYLNALTREXONE 12 MG/0.6 ML VIAL SC (08:30)
[2019-01-15] MEDS: ACCU-CHEK XX ×2 (09:00→20:51)
[2019-01-15] MEDS ORDERED: DEXAMETHASONE 4 MG/ML 20 MG in DEXTROSE 5% 50 ML IVPB (11:00)
[2019-01-15] MEDS ORDERED: DIPHENHYDRAMINE 50 MG INJ IV (11:00)
[2019-01-15] MEDS: MAGNESIUM SULFATE 1 GM/D5W 100 ML IVPB (11:56)
[2019-01-15] MEDS: CALCIUM GLUCONATE 10% 1 GM in DEXTROSE 5% 100 ML IVPB (13:16)
[2019-01-15] MEDS: FAT EMULSION 20% 250 ML IV (15:33)
[2019-01-15] MEDS: TPN 1,000 ML IV (16:12)
[2019-01-15 16:28] LABS: IRON 56 ug/dl (35-150)
[2019-01-15 16:37] LABS: % IRON SATURATION 28 % SAT (22-52); TOTAL IRON BINDING CAPACITY 200 ug/dl (241-421)
[2019-01-15 17:25] LABS: FERRITIN 73.9 ng/ml (6.2-137.0)
[2019-01-15] MEDS: morphine 2 MG INJ IV (21:07)
[2019-01-15] MEDS: ONDANSETRON INJ 16 MG, DEXAMETHASONE 4 MG/ML 20 MG in DEXTROSE 5% 50 ML IV (21:42)
[2019-01-15] MEDS: DIPHENHYDRAMINE 50 MG INJ IV (22:09)
[2019-01-15] MEDS: OXALIPLATIN IV (22:51)
[2019-01-15] MEDS: DEXTROSE 5% IV (22:51)
[2019-01-16] MEDS: LEUCOVORIN CALCIUM IV (01:27)
[2019-01-16] MEDS: DEXTROSE 5% IV ×3 (01:27→05:07)
[2019-01-16] MEDS: FLUOROURACIL IV ×2 (04:24→05:07)
[2019-01-16] MEDS: PANTOPRAZOLE 40 MG INJ IV ×2 (04:51→17:57)
[2019-01-16] MEDS: METOCLOPRAMIDE 10 MG INJ IV ×3 (04:51→17:58)
[2019-01-16 05:44] LABS: ANION GAP 11 (5-13); BLOOD UREA NITROGEN 40 mg/dl (7-20); CALCIUM 9.6 mg/dl (8.4-10.2); CARBON DIOXIDE 20 mmol/L (21-31); CHLORIDE 98 mmol/L (97-110); CREATININE 0.54 mg/dl (0.44-1.00); Estimated GFR > 60 mL/min (>60); GLUCOSE 206 mg/dl (70-220); MAGNESIUM 2.2 mg/dl (1.7-2.5); PHOSPHORUS 2.3 mg/dl (2.5-4.9); POTASSIUM 4.6 mmol/L (3.5-5.1); SODIUM 129 mmol/L (135-144)
[2019-01-16] MEDS: TPN 1,000 ML IV (08:54)
[2019-01-16] MEDS: ACCU-CHEK XX ×2 (09:00→21:35)
[2019-01-16] MEDS: POTASSIUM PHOSPHATE 7.5 MM in SOD CHLORIDE 0.9% 250 ML IV (12:24)
[2019-01-16] MEDS: morphine 2 MG INJ IV ×3 (12:25→23:08)
[2019-01-16] MEDS: FAT EMULSION 20% 250 ML IV (14:50)
[2019-01-16] MEDS: ONDANSETRON 4 MG INJ IV (23:08)
[2019-01-17] MEDS: METOCLOPRAMIDE 10 MG INJ IV ×4 (00:21→17:49)
[2019-01-17] MEDS: TPN 1,000 ML IV ×2 (02:00→17:49)
[2019-01-17] MEDS: PANTOPRAZOLE 40 MG INJ IV ×2 (05:25→17:49)
[2019-01-17] MEDS: morphine 2 MG INJ IV ×3 (05:27→22:05)
[2019-01-17 05:46] LABS: ANION GAP 12 (5-13); BLOOD UREA NITROGEN 45 mg/dl (7-20); CALCIUM 9.5 mg/dl (8.4-10.2); CARBON DIOXIDE 20 mmol/L (21-31); CHLORIDE 97 mmol/L (97-110); CREATININE 0.64 mg/dl (0.44-1.00); Estimated GFR > 60 mL/min (>60); GLUCOSE 164 mg/dl (70-220); MAGNESIUM 2.1 mg/dl (1.7-2.5); PHOSPHORUS 4.2 mg/dl (2.5-4.9); POTASSIUM 4.5 mmol/L (3.5-5.1); SODIUM 129 mmol/L (135-144)
[2019-01-17] MEDS: ONDANSETRON INJ 16 MG, DEXAMETHASONE 4 MG/ML 20 MG in DEXTROSE 5% 50 ML IV (06:04)
[2019-01-17] MEDS: DIPHENHYDRAMINE 50 MG INJ IV (06:05)
[2019-01-17] MEDS: FLUOROURACIL IV (06:46)
[2019-01-17] MEDS: DEXTROSE 5% IV (06:46)
[2019-01-17] MEDS: METHYLNALTREXONE 12 MG/0.6 ML VIAL SC (10:53)
[2019-01-17] MEDS: ACCU-CHEK XX ×2 (10:53→21:15)
[2019-01-17] MEDS: BISACODYL 10 MG SUPP PR (10:53)
[2019-01-17 13:02] LABS: ADD UMIC NO; UR ASCORBIC ACID NEGATIVE (NEGATIVE); UR BILIRUBIN (Dip) NEGATIVE (NEGATIVE); UR BLOOD (Dip) NEGATIVE (NEGATIVE); UR CLARITY CLEAR (CLEAR); UR COLOR YELLOW (YELLOW); UR GLUCOSE (Dip) NEGATIVE (NEGATIVE); UR KETONES (Dip) NEGATIVE (NEGATIVE); UR LEUKOCYTE ESTERASE (Dip) NEGATIVE Leu/ul (NEGATIVE); UR NITRITE (Dip) NEGATIVE (NEGATIVE); UR SPECIFIC GRAVITY (Dip) 1.021 (1.003-1.030); UR TOTAL PROTEIN (Dip) NEGATIVE (NEGATIVE); UR UROBILINOGEN (Dip) NEGATIVE (NEGATIVE)
[2019-01-17 13:10] LABS: CREATININE,URINE RANDOM 62.31 mg/dl (20-320)
[2019-01-17 13:24] LABS: SODIUM,URINE RANDOM < 13 mmol/L (30-90)
[2019-01-17 14:14] LABS: OSMOLALITY,URINE 728 mOsm/kg (250-1200)
[2019-01-17] MEDS: FAT EMULSION 20% 250 ML IV (16:07)
[2019-01-18] MEDS: METOCLOPRAMIDE 10 MG INJ IV ×4 (00:26→18:00)
[2019-01-18] MEDS: PANTOPRAZOLE 40 MG INJ IV ×2 (05:43→17:59)
[2019-01-18] MEDS: morphine 2 MG INJ IV ×3 (05:43→21:17)
[2019-01-18 05:55] LABS: ADD MAN DIFF? NO
[2019-01-18 06:06] LABS: WHITE BLOOD COUNT 6.3 10^3/ul (4.8-10.8)
[2019-01-18 06:06] LABS: BASOPHILS % 0.2 % (0.0-2.0); EOSINOPHILS # 0.1 10^3/ul (0.0-0.5); EOSINOPHILS % 0.8 % (0.0-7.0); HEMATOCRIT 30.9 % (37.0-47.0); HEMOGLOBIN 10.3 g/dl (12.0-16.0); LYMPHOCYTES # 1.6 10^3/ul (0.8-2.9); LYMPHOCYTES % 25.2 % (15.0-51.0); MEAN CORPUSCULAR HEMOGLOBIN 26.4 pg (29.0-33.0); MEAN CORPUSCULAR HGB CONC 33.3 g/dl (32.0-37.0); MEAN CORPUSCULAR VOLUME 79.2 fl (82.0-101.0); MEAN PLATELET VOLUME 10.4 fl (7.4-10.4); MONOCYTE # 0.4 10^3/ul (0.3-0.9); MONOCYTES % 5.5 % (0.0-11.0); NEUTROPHIL # 4.3 10^3/ul (1.6-7.5); NEUTROPHILS % 67.8 % (39.0-77.0); PLATELET COUNT 325 10^3/UL (140-415); RED CELL DISTRIBUTION WIDTH 18.7 % (11.5-14.5)
[2019-01-18 06:23] LABS: ANION GAP 13 (5-13); BLOOD UREA NITROGEN 32 mg/dl (7-20); CALCIUM 9.2 mg/dl (8.4-10.2); CARBON DIOXIDE 23 mmol/L (21-31); CHLORIDE 94 mmol/L (97-110); CREATININE 0.61 mg/dl (0.44-1.00); Estimated GFR > 60 mL/min (>60); GLUCOSE 141 mg/dl (70-220); MAGNESIUM 2.1 mg/dl (1.7-2.5); PHOSPHORUS 3.4 mg/dl (2.5-4.9); POTASSIUM 4.2 mmol/L (3.5-5.1); SODIUM 130 mmol/L (135-144)
[2019-01-18] MEDS: ACCU-CHEK XX ×2 (09:00→21:22)
[2019-01-18] MEDS: TPN 1,000 ML IV (10:51)
[2019-01-18] MEDS: FAT EMULSION 20% 250 ML IV (16:08)
[2019-01-19] MEDS: TPN 1,000 ML IV ×2 (03:27→20:09)
[2019-01-19] MEDS: METOCLOPRAMIDE 10 MG INJ IV ×5 (03:31→23:15)
[2019-01-19 05:31] LABS: ADD MAN DIFF? NO
[2019-01-19 05:42] LABS: WHITE BLOOD COUNT 5.1 10^3/ul (4.8-10.8)
[2019-01-19 05:42] LABS: BASOPHILS % 0.2 % (0.0-2.0); EOSINOPHILS % 0.4 % (0.0-7.0); HEMATOCRIT 30.5 % (37.0-47.0); HEMOGLOBIN 10.2 g/dl (12.0-16.0); LYMPHOCYTES # 1.2 10^3/ul (0.8-2.9); LYMPHOCYTES % 22.8 % (15.0-51.0); MEAN CORPUSCULAR HEMOGLOBIN 26.8 pg (29.0-33.0); MEAN CORPUSCULAR HGB CONC 33.4 g/dl (32.0-37.0); MEAN CORPUSCULAR VOLUME 80.3 fl (82.0-101.0); MEAN PLATELET VOLUME 10.5 fl (7.4-10.4); MONOCYTE # 0.1 10^3/ul (0.3-0.9); MONOCYTES % 2.2 % (0.0-11.0); NEUTROPHIL # 3.8 10^3/ul (1.6-7.5); PLATELET COUNT 296 10^3/UL (140-415); RED CELL DISTRIBUTION WIDTH 18.6 % (11.5-14.5)
[2019-01-19 06:09] LABS: ANION GAP 15 (5-13); BLOOD UREA NITROGEN 37 mg/dl (7-20); CALCIUM 8.9 mg/dl (8.4-10.2); CARBON DIOXIDE 24 mmol/L (21-31); CHLORIDE 93 mmol/L (97-110); CREATININE 0.51 mg/dl (0.44-1.00); Estimated GFR > 60 mL/min (>60); GLUCOSE 133 mg/dl (70-220); MAGNESIUM 2.2 mg/dl (1.7-2.5); PHOSPHORUS 3.8 mg/dl (2.5-4.9); SODIUM 132 mmol/L (135-144)
[2019-01-19] MEDS: PANTOPRAZOLE 40 MG INJ IV ×2 (06:12→17:32)
[2019-01-19] MEDS: METHYLNALTREXONE 12 MG/0.6 ML VIAL SC (08:30)
[2019-01-19] MEDS: ACCU-CHEK XX ×2 (08:51→20:11)
[2019-01-19] MEDS: ACETAMINOPHEN 1000MG/100ML IV 100 ML IVPB (13:03)
[2019-01-19] MEDS: FAT EMULSION 20% 250 ML IV (15:25)
[2019-01-20] MEDS: PANTOPRAZOLE 40 MG INJ IV ×2 (06:00→18:00)
[2019-01-20] MEDS: METOCLOPRAMIDE 10 MG INJ IV (06:00)
[2019-01-20 06:22] LABS: ADD MAN DIFF? NO
[2019-01-20 06:32] LABS: WHITE BLOOD COUNT 5.2 10^3/ul (4.8-10.8)
[2019-01-20 06:32] LABS: BASOPHILS % 0.2 % (0.0-2.0); EOSINOPHILS % 0.6 % (0.0-7.0); HEMATOCRIT 30.9 % (37.0-47.0); HEMOGLOBIN 10.2 g/dl (12.0-16.0); LYMPHOCYTES # 1.1 10^3/ul (0.8-2.9); LYMPHOCYTES % 21.1 % (15.0-51.0); MEAN CORPUSCULAR HEMOGLOBIN 27.6 pg (29.0-33.0); MEAN CORPUSCULAR VOLUME 83.5 fl (82.0-101.0); MEAN PLATELET VOLUME 11.3 fl (7.4-10.4); MONOCYTES % 0.8 % (0.0-11.0); NEUTROPHILS % 77.1 % (39.0-77.0); PLATELET COUNT 315 10^3/UL (140-415); RED CELL DISTRIBUTION WIDTH 18.8 % (11.5-14.5)
[2019-01-20 06:54] LABS: ANION GAP 14 (5-13); BLOOD UREA NITROGEN 44 mg/dl (7-20); CALCIUM 8.1 mg/dl (8.4-10.2); CARBON DIOXIDE 19 mmol/L (21-31); CHLORIDE 94 mmol/L (97-110); CREATININE 0.79 mg/dl (0.44-1.00); Estimated GFR > 60 mL/min (>60); MAGNESIUM 2.8 mg/dl (1.7-2.5); PHOSPHORUS 4.7 mg/dl (2.5-4.9); POTASSIUM 4.8 mmol/L (3.5-5.1); SODIUM 127 mmol/L (135-144); TRIGLYCERIDES 507 mg/dl (0-149)
[2019-01-20 08:32] LABS: PREALBUMIN 22.1 mg/dl (17.6-36.0)
[2019-01-20] MEDS: ACCU-CHEK XX ×2 (09:00→21:00)
[2019-01-20] MEDS: SOD CHLORIDE 0.9% 1,000 ML IV ×2 (10:59→21:50)
[2019-01-20] MEDS ORDERED: ONDANSETRON 4 MG INJ IV (12:00)
[2019-01-20] MEDS: ONDANSETRON 4 MG INJ IV (13:16)
[2019-01-20 14:17] LABS: CREATININE, RANDOM URINE 68 mg/dL (20-275); MICROALBUMIN 1.5 mg/dL; MICROALBUMIN/CREATININE RATIO 22 (<30)
[2019-01-20 14:44] LABS: ANION GAP 12 (5-13); BLOOD UREA NITROGEN 52 mg/dl (7-20); CALCIUM 9.3 mg/dl (8.4-10.2); CARBON DIOXIDE 22 mmol/L (21-31); CHLORIDE 99 mmol/L (97-110); CREATININE 0.49 mg/dl (0.44-1.00); Estimated GFR > 60 mL/min (>60); GLUCOSE 154 mg/dl (70-220); POTASSIUM 4.4 mmol/L (3.5-5.1); SODIUM 133 mmol/L (135-144)
[2019-01-20] MEDS: PROCHLORPERAZINE 10 MG INJ IV (16:19)
[2019-01-20] MEDS: TPN 1,000 ML IV (17:59)
[2019-01-20] MEDS: KETOROLAC 30 MG INJ IV (19:27)
[2019-01-20] MEDS: ONDANSETRON INJ 8 MG in SOD CHLORIDE 0.9% 50 ML IV (20:56)
[2019-01-21] MEDS: TPN 1,000 ML IV ×2 (04:00→13:07)
[2019-01-21] MEDS: SOD CHLORIDE 0.9% 1,000 ML IV (05:13)
[2019-01-21] MEDS: PANTOPRAZOLE 40 MG INJ IV (05:17)
[2019-01-21 05:38] LABS: ALBUMIN 3.7 g/dl (3.3-4.9); ANION GAP 14 (5-13); BLOOD UREA NITROGEN 60 mg/dl (7-20); CALCIUM 9.3 mg/dl (8.4-10.2); CARBON DIOXIDE 21 mmol/L (21-31); CHLORIDE 99 mmol/L (97-110); CREATININE 0.89 mg/dl (0.44-1.00); GLUCOSE 121 mg/dl (70-220); MAGNESIUM 2.3 mg/dl (1.7-2.5); PHOSPHORUS 4.2 mg/dl (2.5-4.9); POTASSIUM 4.1 mmol/L (3.5-5.1); SODIUM 134 mmol/L (135-144)
[2019-01-21] MEDS: METHYLNALTREXONE 12 MG/0.6 ML VIAL SC (08:30)
[2019-01-21] MEDS: ACCU-CHEK XX ×2 (09:37→21:00)
[2019-01-21] MEDS: FAMOTIDINE 20 MG INJ IV ×2 (13:04→21:47)
[2019-01-21] MEDS: ONDANSETRON INJ 8 MG in SOD CHLORIDE 0.9% 50 ML IV (23:18)
[2019-01-22 05:49] LABS: ANION GAP 10 (5-13); BLOOD UREA NITROGEN 53 mg/dl (7-20); CARBON DIOXIDE 19 mmol/L (21-31); CHLORIDE 109 mmol/L (97-110); CREATININE 0.49 mg/dl (0.44-1.00); Estimated GFR > 60 mL/min (>60); GLUCOSE 131 mg/dl (70-220); MAGNESIUM 2.3 mg/dl (1.7-2.5); PHOSPHORUS 3.2 mg/dl (2.5-4.9); POTASSIUM 4.2 mmol/L (3.5-5.1); SODIUM 138 mmol/L (135-144); TRIGLYCERIDES 166 mg/dl (0-149)
[2019-01-22] MEDS: TPN 1,000 ML IV ×2 (06:27→23:58)
[2019-01-22] MEDS: BARIUM SULFATE 135 ML (E-Z HD) PO ×2 (07:51)
[2019-01-22] MEDS: FAMOTIDINE 20 MG INJ IV ×2 (09:14→21:47)
[2019-01-22] MEDS: ACCU-CHEK XX ×2 (09:14→21:57)
[2019-01-23 06:07] LABS: ANION GAP 15 (5-13); BLOOD UREA NITROGEN 52 mg/dl (7-20); CALCIUM 9.6 mg/dl (8.4-10.2); CARBON DIOXIDE 18 mmol/L (21-31); CHLORIDE 103 mmol/L (97-110); CREATININE 0.59 mg/dl (0.44-1.00); Estimated GFR > 60 mL/min (>60); GLUCOSE 150 mg/dl (70-220); MAGNESIUM 2.1 mg/dl (1.7-2.5); PHOSPHORUS 3.3 mg/dl (2.5-4.9); POTASSIUM 3.8 mmol/L (3.5-5.1); SODIUM 136 mmol/L (135-144); TRIGLYCERIDES 183 mg/dl (0-149)
[2019-01-23] MEDS: METHYLNALTREXONE 12 MG/0.6 ML VIAL SC (08:30)
[2019-01-23] MEDS: ACCU-CHEK XX ×2 (09:04→20:05)
[2019-01-23] MEDS: FAMOTIDINE 20 MG INJ IV ×2 (09:04→20:02)
[2019-01-23] MEDS: SOD CHLORIDE 0.9% 1,000 ML IV (11:45)
[2019-01-23] MEDS: PROCHLORPERAZINE 10 MG INJ IV ×2 (15:49→22:16)
[2019-01-23] MEDS: TPN 1,000 ML IV (20:00)
[2019-01-24] MEDS: SOD CHLORIDE 0.9% 1,000 ML IV (05:16)
[2019-01-24 06:35] LABS: ANION GAP 13 (5-13); Estimated GFR > 60 mL/min (>60)
[2019-01-24 06:43] LABS: BLOOD UREA NITROGEN 57 mg/dl (7-20); CALCIUM 9.7 mg/dl (8.4-10.2); CARBON DIOXIDE 16 mmol/L (21-31); CHLORIDE 104 mmol/L (97-110); CREATININE 0.65 mg/dl (0.44-1.00); GLUCOSE 161 mg/dl (70-220); MAGNESIUM 2.1 mg/dl (1.7-2.5); PHOSPHORUS 3.4 mg/dl (2.5-4.9); SODIUM 133 mmol/L (135-144); TRIGLYCERIDES 182 mg/dl (0-149)
[2019-01-24] MEDS ORDERED: PROPOFOL 200 MG INJ (07:00)
[2019-01-24] MEDS: PROCHLORPERAZINE 10 MG INJ IV (07:21)
[2019-01-24] MEDS: FAMOTIDINE 20 MG INJ IV ×2 (08:13→20:20)
[2019-01-24] MEDS: ACCU-CHEK XX ×2 (08:45→20:55)
[2019-01-24] MEDS: TPN 1,000 ML IV (11:40)
[2019-01-24] MEDS: LACTATED RINGER'S 1,000 ML IV (12:34)
[2019-01-24] MEDS ORDERED: FENTAnyl 50 MCG/ML VIAL ×3 (13:34→14:33)
[2019-01-24] MEDS ORDERED: SUCCINYLCHOLINE CHLORIDE 100 MG/5 ML SYG IV (13:34)
[2019-01-24] MEDS ORDERED: MIDAZOLAM 1 MG/ML 2 ML INJ (13:34)
[2019-01-24] MEDS ORDERED: ROPIVACAINE 0.5 % 30 ML VIAL (13:34)
[2019-01-24] MEDS ORDERED: LIDOCAINE 2% (SDV) 5 ML INJ (13:34)
[2019-01-24] MEDS ORDERED: ETOMIDATE 20 MG INJ (13:34)
[2019-01-24] MEDS ORDERED: ROCURONIUM 50 MG INJ (13:34)
[2019-01-24] MEDS ORDERED: PHENYLephrine (100 MCG/ML) 5ML SYG (14:04)
[2019-01-24] MEDS ORDERED: CEFAZOLIN 1 GM INJ (14:16)
[2019-01-24] MEDS ORDERED: ONDANSETRON 4 MG INJ (14:21)
[2019-01-24] MEDS ORDERED: FAMOTIDINE 20 MG INJ (14:22)
[2019-01-24] MEDS ORDERED: METOCLOPRAMIDE 10 MG INJ (14:22)
[2019-01-24] MEDS ORDERED: IOHEXOL 300MG/ML 30 ML BTL (14:35)
[2019-01-24] MEDS: DIATR MEGLU/DIATRIZOATE SODIUM 120 ML BTL ×2 (14:46)
[2019-01-24] MEDS ORDERED: metroNIDAZOLE 500 MG/NS (PMX) 100 ML IVPB (14:49)
[2019-01-24] MEDS ORDERED: DEXAMETHASONE 4 MG/ML 5 ML INJ (14:54)
[2019-01-24] MEDS ORDERED: DEXTROSE 50% 50 ML SYRINGE (15:14)
[2019-01-24] MEDS: LIDOCAINE 2% (MDV) 20 ML INJ (15:25)
[2019-01-24] MEDS: BUPIVACAINE 0.5%/EPI (SDV) 30 ML INJ (15:25)
[2019-01-24] MEDS ORDERED: SUGAMMADEX SODIUM 200 MG/2 ML VIAL IV (15:32)
[2019-01-24] MEDS ORDERED: ESMOLOL 10 ML (15:36)
[2019-01-24] MEDS: CEFAZOLIN 2 GM/50 ML (PMX) 50 ML IVPB (16:58)
[2019-01-24] MEDS: metroNIDAZOLE 500 MG/NS (PMX) 100 ML IVPB ×2 (17:33→22:06)
[2019-01-24] MEDS: morphine 2 MG INJ IV (20:48)
[2019-01-25] MEDS: CEFAZOLIN 2 GM/50 ML (PMX) 50 ML IVPB ×3 (00:19→15:14)
[2019-01-25] MEDS: morphine 2 MG INJ IV ×5 (03:15→22:45)
[2019-01-25] MEDS: PROCHLORPERAZINE 10 MG INJ IV ×2 (03:32→20:12)
[2019-01-25] MEDS: SOD CHLORIDE 0.9% 1,000 ML IV ×3 (05:31→23:33)
[2019-01-25] MEDS: metroNIDAZOLE 500 MG/NS (PMX) 100 ML IVPB ×2 (05:31→14:00)
[2019-01-25 06:27] LABS: PREALBUMIN 27.9 mg/dl (17.6-36.0)
[2019-01-25 06:42] LABS: ANION GAP 11 (5-13); BLOOD UREA NITROGEN 42 mg/dl (7-20); CALCIUM 8.9 mg/dl (8.4-10.2); CARBON DIOXIDE 17 mmol/L (21-31); CHLORIDE 107 mmol/L (97-110); CREATININE 0.66 mg/dl (0.44-1.00); Estimated GFR > 60 mL/min (>60); GLUCOSE 141 mg/dl (70-220); MAGNESIUM 1.6 mg/dl (1.7-2.5); PHOSPHORUS 2.7 mg/dl (2.5-4.9); POTASSIUM 3.5 mmol/L (3.5-5.1); SODIUM 135 mmol/L (135-144)
[2019-01-25] MEDS: FAMOTIDINE 20 MG INJ IV ×2 (07:47→20:13)
[2019-01-25] MEDS: METHYLNALTREXONE 12 MG/0.6 ML VIAL SC (07:47)
[2019-01-25] MEDS: TPN 1,000 ML IV (07:48)
[2019-01-25] MEDS: ACCU-CHEK XX ×2 (08:47→20:18)
[2019-01-25] MEDS: MAGNESIUM SULFATE 2 GM/50 ML 50 ML IVPB ×2 (09:09→15:15)
[2019-01-25] MEDS: POTASSIUM CHLORIDE 100 ML IVPB ×2 (15:15→17:09)
[2019-01-26] MEDS: SOD CHLORIDE 0.9% 1,000 ML IV ×2 (00:39→20:05)
[2019-01-26] MEDS: TPN 1,000 ML IV ×3 (00:40→22:13)
[2019-01-26 01:29] LABS: ABNORMAL IP MESSAGE 1; HEMATOCRIT 22.2 % (37.0-47.0); HEMOGLOBIN 7.5 g/dl (12.0-16.0); MEAN CORPUSCULAR HEMOGLOBIN 27.7 pg (29.0-33.0); MEAN CORPUSCULAR HGB CONC 33.8 g/dl (32.0-37.0); MEAN CORPUSCULAR VOLUME 81.9 fl (82.0-101.0); MEAN PLATELET VOLUME 10.1 fl (7.4-10.4); PLATELET COUNT 148 10^3/UL (140-415); RED BLOOD COUNT 2.71 10^6/ul (4.20-5.40); RED CELL DISTRIBUTION WIDTH 15.9 % (11.5-14.5)
[2019-01-26 01:29] LABS: WHITE BLOOD COUNT 0.4 10^3/ul (4.8-10.8)
[2019-01-26] MEDS: SOD CHLORIDE 0.9% 100 ML (01:41)
[2019-01-26] MEDS: IOHEXOL 300MG/ML 150 ML BTL (01:41)
[2019-01-26 01:46] LABS: POSITIVE DIFF @See below
[2019-01-26 01:49] LABS: ADD MAN DIFF? YES
[2019-01-26 01:57] LABS: ALANINE AMINOTRANSFERASE 24 IU/L (13-69); ALBUMIN 2.3 g/dl (3.3-4.9); ALBUMIN/GLOBULIN RATIO 0.82; ALKALINE PHOSPHATASE 106 IU/L (42-121); ANION GAP 9 (5-13); ASPARTATE AMINO TRANSFERASE 10 IU/L (15-46); BILIRUBIN,INDIRECT 0.2 mg/dl (0-1.1); BILIRUBIN,TOTAL 0.2 mg/dl (0.2-1.3); BLOOD UREA NITROGEN 41 mg/dl (7-20); CALCIUM 7.9 mg/dl (8.4-10.2); CARBON DIOXIDE 15 mmol/L (21-31); CHLORIDE 114 mmol/L (97-110); CREATININE 0.74 mg/dl (0.44-1.00); Estimated GFR > 60 mL/min (>60); GLUCOSE 156 mg/dl (70-220); SODIUM 138 mmol/L (135-144); TOTAL PROTEIN 5.1 g/dl (6.1-8.1)
[2019-01-26 03:09] LABS: TROPONIN-I 0.027 ng/ml (0.000-0.120)
[2019-01-26] MEDS: PROCHLORPERAZINE 10 MG INJ IV ×3 (03:27→11:57)
[2019-01-26] MEDS: VANCOMYCIN 1 GM 250 ML IVPB (03:55)
[2019-01-26] MEDS ORDERED: VANCOMYCIN IV PER PHARMACY XX (04:00)
[2019-01-26 04:06] LABS: ANISOCYTOSIS 1+ (0-0); BAND NEUTROPHILS % (M) 12 % (0-4); ERYTHROBLAST% (NRBC) (M) 6 % (0-0); GIANT THROMBO% (M) 13 % (0-0); LYMPHOCYTES #M 0.2 10^3/ul (0.8-2.9); LYMPHOCYTES % (M) 58 % (15-51); METAMYELOCYTES %M 3 % (0-0); MICROCYTOSIS 1+ (0-0); MONOCYTES % (M) 2 % (0-11); PLATELET ESTIMATE NORMAL; POLYCHROMASIA 3+ (0-0); SEG NEUT #M 0.1 10^3/ul (1.6-7.5); SEGMENTED NEUTROPHILS (M) % 17 % (39-77); SMUDGE%M 8 % (0-0)
[2019-01-26] MEDS ORDERED: NORepinephrine 8MG/250 ML (PMX 250 ML IV ×2 (04:45→19:00)
[2019-01-26] MEDS ORDERED: PHENYLephrine 20MG IN 250 ML 250 ML (05:05)
[2019-01-26 05:17] LABS: ALBUMIN 2.3 g/dl (3.3-4.9); ANION GAP 11 (5-13); BLOOD UREA NITROGEN 43 mg/dl (7-20); CALCIUM 8.1 mg/dl (8.4-10.2); CARBON DIOXIDE 15 mmol/L (21-31); CHLORIDE 111 mmol/L (97-110); CREATININE 0.99 mg/dl (0.44-1.00); GLUCOSE 128 mg/dl (70-220); MAGNESIUM 2.9 mg/dl (1.7-2.5); PHOSPHORUS 0.6 mg/dl (2.5-4.9); POTASSIUM 3.7 mmol/L (3.5-5.1); SODIUM 137 mmol/L (135-144)
[2019-01-26 05:26] LABS: ABNORMAL IP MESSAGE 1; HEMATOCRIT 21.9 % (37.0-47.0); HEMOGLOBIN 7.4 g/dl (12.0-16.0); MEAN CORPUSCULAR HEMOGLOBIN 27.6 pg (29.0-33.0); MEAN CORPUSCULAR HGB CONC 33.8 g/dl (32.0-37.0); MEAN CORPUSCULAR VOLUME 81.7 fl (82.0-101.0); MEAN PLATELET VOLUME 9.3 fl (7.4-10.4); PLATELET COUNT 133 10^3/UL (140-415); RED BLOOD COUNT 2.68 10^6/ul (4.20-5.40); RED CELL DISTRIBUTION WIDTH 15.9 % (11.5-14.5)
[2019-01-26 05:26] LABS: WHITE BLOOD COUNT 0.3 10^3/ul (4.8-10.8)
[2019-01-26] MEDS: metroNIDAZOLE 500 MG/NS (PMX) 100 ML IVPB ×3 (05:27→22:04)
[2019-01-26] MEDS: PIPER-TAZO 3.375 GM IV (PMX) 100 ML IVPB ×2 (05:27→11:42)
[2019-01-26] MEDS ORDERED: PHENYLephrine 20MG IN 250 ML 250 ML IV (05:30)
[2019-01-26 05:37] LABS: POSITIVE DIFF @See below
[2019-01-26 05:38] LABS: ADD MAN DIFF? YES
[2019-01-26] MEDS: PHENYLephrine 20MG IN 250 ML 250 ML IV ×2 (05:38→06:58)
[2019-01-26] MEDS: ACETAMINOPHEN 1000MG/100ML IV 100 ML IVPB (05:57)
[2019-01-26] MEDS: METOPROLOL 5 MG INJ IV (05:58)
[2019-01-26] MEDS ORDERED: ROCURONIUM 50 MG INJ (07:00)
[2019-01-26] MEDS ORDERED: NA BICARBONATE 8.4% 50 ML SYG (07:00)
[2019-01-26] MEDS: LACTATED RINGER'S 1,000 ML IV ×5 (07:19→21:29)
[2019-01-26] MEDS: POTASSIUM PHOSPHATE 30 MEQ in SOD CHLORIDE 0.9% 250 ML IVPB (07:19)
[2019-01-26] MEDS: morphine 2 MG INJ IV ×3 (07:35→17:11)
[2019-01-26 07:53] LABS: ADD MAN DIFF? NO
[2019-01-26 07:56] LABS: WHITE BLOOD COUNT 0.3 10^3/ul (4.8-10.8)
[2019-01-26 07:56] LABS: ABNORMAL IP MESSAGE 1; HEMATOCRIT 19.6 % (37.0-47.0); MEAN CORPUSCULAR HEMOGLOBIN 27.8 pg (29.0-33.0); MEAN CORPUSCULAR HGB CONC 32.7 g/dl (32.0-37.0); MEAN CORPUSCULAR VOLUME 85.2 fl (82.0-101.0); MEAN PLATELET VOLUME 10.3 fl (7.4-10.4); PLATELET COUNT 198 10^3/UL (140-415); RED CELL DISTRIBUTION WIDTH 16.3 % (11.5-14.5)
[2019-01-26 08:02] LABS: HEMOGLOBIN 6.4 g/dl (12.0-16.0); POSITIVE DIFF @See below
[2019-01-26 08:13] LABS: ALANINE AMINOTRANSFERASE 19 IU/L (13-69); ALBUMIN 2.1 g/dl (3.3-4.9); ALBUMIN/GLOBULIN RATIO 0.77; ALKALINE PHOSPHATASE 88 IU/L (42-121); ANION GAP 13 (5-13); ASPARTATE AMINO TRANSFERASE 11 IU/L (15-46); BILIRUBIN,INDIRECT 0.2 mg/dl (0-1.1); BILIRUBIN,TOTAL 0.2 mg/dl (0.2-1.3); BLOOD UREA NITROGEN 45 mg/dl (7-20); CALCIUM 8.3 mg/dl (8.4-10.2); CARBON DIOXIDE 12 mmol/L (21-31); CHLORIDE 113 mmol/L (97-110); CREATININE 1.14 mg/dl (0.44-1.00); Estimated GFR 51 mL/min (>60); GLUCOSE 153 mg/dl (70-220); POTASSIUM 3.3 mmol/L (3.5-5.1); SODIUM 138 mmol/L (135-144); TOTAL PROTEIN 4.8 g/dl (6.1-8.1)
[2019-01-26 08:24] LABS: LACTIC ACID 5.8 mmol/L (0.5-2.0)
[2019-01-26] MEDS ORDERED: POTASSIUM CHLORIDE 100 ML IVPB (09:00)
[2019-01-26] MEDS: ACCU-CHEK XX ×2 (09:00→21:35)
[2019-01-26 09:34] LABS: ANISOCYTOSIS 2+ (0-0); BAND NEUTROPHILS % (M) 18 % (0-4); ERYTHROBLAST% (NRBC) (M) 23 % (0-0); GIANT THROMBO% (M) 11 % (0-0); LYMPHOCYTES #M 0.2 10^3/ul (0.8-2.9); LYMPHOCYTES % (M) 67 % (15-51); METAMYELOCYTES %M 5 % (0-0); MICROCYTOSIS 1+ (0-0); OVALOCYTES 1+ (0-0); PLASMAC%(M) 2 % (0); PLATELET ESTIMATE DECREASED; PLATELET MORPHOLOGY COMMENT @See below; POIKILOCYTOSIS 1+ (0-0); POLYCHROMASIA 2+ (0-0); REACTIVE LYMPHOCYTES% (M) 2 % (0-0); SEGMENTED NEUTROPHILS (M) % 6 % (39-77); SMUDGE%M 52 % (0-0)
[2019-01-26] MEDS ORDERED: PIPER-TAZO 3.375 GM IV (PMX) 100 ML IVPB (10:00)
[2019-01-26] MEDS: FAMOTIDINE 20 MG INJ IV ×2 (10:07→21:31)
[2019-01-26] MEDS: LIDOCAINE 1%/EPI 30 ML INJ INJ (10:16)
[2019-01-26] MEDS ORDERED: LIDOCAINE 1% (MDV) 20 ML INJ (10:19)
[2019-01-26 10:25] LABS: ADD MAN DIFF? NO
[2019-01-26 10:26] LABS: ABNORMAL IP MESSAGE 1; HEMATOCRIT 25.6 % (37.0-47.0); HEMOGLOBIN 8.4 g/dl (12.0-16.0); MEAN CORPUSCULAR HEMOGLOBIN 28.2 pg (29.0-33.0); MEAN CORPUSCULAR HGB CONC 32.8 g/dl (32.0-37.0); MEAN CORPUSCULAR VOLUME 85.9 fl (82.0-101.0); MEAN PLATELET VOLUME 9.8 fl (7.4-10.4); PLATELET COUNT 153 10^3/UL (140-415); RED BLOOD COUNT 2.98 10^6/ul (4.20-5.40); RED CELL DISTRIBUTION WIDTH 16.1 % (11.5-14.5)
[2019-01-26 10:26] LABS: WHITE BLOOD COUNT 0.3 10^3/ul (4.8-10.8)
[2019-01-26 10:30] LABS: POSITIVE DIFF @See below
[2019-01-26 10:46] LABS: INR 2.07; PROTIME 23.4 Sec (11.9-14.9); PT RATIO 1.8
[2019-01-26 10:55] LABS: LACTIC ACID 6.2 mmol/L (0.5-2.0)
[2019-01-26] MEDS: LIDOCAINE 1%/EPI (1:100,000) (MDV) 20 ML INJ (11:00)
[2019-01-26 11:02] LABS: ALANINE AMINOTRANSFERASE 19 IU/L (13-69); ALBUMIN 1.8 g/dl (3.3-4.9); ALBUMIN/GLOBULIN RATIO 0.78; ALKALINE PHOSPHATASE 76 IU/L (42-121); ANION GAP 14 (5-13); ASPARTATE AMINO TRANSFERASE 12 IU/L (15-46); BILIRUBIN,INDIRECT 0.3 mg/dl (0-1.1); BILIRUBIN,TOTAL 0.3 mg/dl (0.2-1.3); BLOOD UREA NITROGEN 46 mg/dl (7-20); CALCIUM 7.6 mg/dl (8.4-10.2); CARBON DIOXIDE 11 mmol/L (21-31); CHLORIDE 114 mmol/L (97-110); CREATININE 1.22 mg/dl (0.44-1.00); Estimated GFR 47 mL/min (>60); GLUCOSE 156 mg/dl (70-220); POTASSIUM 3.8 mmol/L (3.5-5.1); SODIUM 139 mmol/L (135-144); TOTAL PROTEIN 4.1 g/dl (6.1-8.1)
[2019-01-26] MEDS: PHENYLephrine 80 MG in DEXTROSE 5% 242 ML IV ×2 (11:17→20:33)
[2019-01-26] MEDS: VASOPRESSIN 60 UNIT in DEXTROSE 5% 57 ML IV ×2 (11:17→21:30)
[2019-01-26] MEDS: POTASSIUM CHLORIDE 100 ML IVPB (12:47)
[2019-01-26] MEDS: NORepinephrine 8MG/250 ML (PMX 250 ML IV (13:00)
[2019-01-26] MEDS ORDERED: PHENYLephrine (100 MCG/ML) 5ML SYG (13:04)
[2019-01-26] MEDS ORDERED: KETAMINE (50 MG/ML) 10 ML VIAL (13:05)
[2019-01-26] MEDS ORDERED: MIDAZOLAM 1 MG/ML 2 ML INJ (13:05)
[2019-01-26 13:38] LABS: IMMEDIATE SPIN CROSSMATCH 1
[2019-01-26] MEDS ORDERED: metroNIDAZOLE 500 MG/NS (PMX) 100 ML IVPB (15:10)
[2019-01-26 15:13] LABS: ABNORMAL IP MESSAGE 1; HEMATOCRIT 30.7 % (37.0-47.0); HEMOGLOBIN 10.2 g/dl (12.0-16.0); MEAN CORPUSCULAR HEMOGLOBIN 28.7 pg (29.0-33.0); MEAN CORPUSCULAR HGB CONC 33.2 g/dl (32.0-37.0); MEAN CORPUSCULAR VOLUME 86.2 fl (82.0-101.0); MEAN PLATELET VOLUME 9.8 fl (7.4-10.4); PLATELET COUNT 115 10^3/UL (140-415); RED BLOOD COUNT 3.56 10^6/ul (4.20-5.40); RED CELL DISTRIBUTION WIDTH 14.7 % (11.5-14.5)
[2019-01-26 15:13] LABS: WHITE BLOOD COUNT 0.4 10^3/ul (4.8-10.8)
[2019-01-26 15:21] LABS: AADO2 Arterial 176.2 mmHg (7.0-24.0); Arterial Base Excess -20.8 mmol/L (-3.0-3); Arterial Blood Gas Oxygen Sat 99.2 mmHG (95.0-98.0); Arterial COHb 0.3 % (0.0-3.0); Arterial Fraction of Oxyhgb 98.9 % (93.0-99.0); Arterial HCO3 8.3 mmol/L (22.0-26.0); Arterial MetHb 0 % (0.0-1.5); Arterial pCO2 30.3 mmhg (35-45); MODE VENT - AC; Site A-Line
[2019-01-26 15:27] LABS: INR 1.84; PROTIME 21.3 Sec (11.9-14.9); PT RATIO 1.7
[2019-01-26 15:28] LABS: PARTIAL THROMBOPLASTIN TIME 35.7 Sec (23.0-35.0)
[2019-01-26 15:31] LABS: ADD MAN DIFF? YES; PATH REVIEW? YES; POSITIVE DIFF @See below
[2019-01-26 15:55] LABS: ALANINE AMINOTRANSFERASE 21 IU/L (13-69); ALBUMIN 2.3 g/dl (3.3-4.9); ALBUMIN/GLOBULIN RATIO 0.79; ALKALINE PHOSPHATASE 77 IU/L (42-121); ANION GAP 18 (5-13); ASPARTATE AMINO TRANSFERASE 22 IU/L (15-46); BILIRUBIN,INDIRECT 0.2 mg/dl (0-1.1); BILIRUBIN,TOTAL 0.2 mg/dl (0.2-1.3); BLOOD UREA NITROGEN 42 mg/dl (7-20); CALCIUM 7.2 mg/dl (8.4-10.2); CHLORIDE 112 mmol/L (97-110); CREATININE 1.52 mg/dl (0.44-1.00); Estimated GFR 36 mL/min (>60); GLUCOSE 168 mg/dl (70-220); POTASSIUM 4.9 mmol/L (3.5-5.1); SODIUM 138 mmol/L (135-144); TOTAL PROTEIN 5.2 g/dl (6.1-8.1)
[2019-01-26] MEDS ORDERED: ONDANSETRON 4 MG INJ IV (16:00)
[2019-01-26] MEDS ORDERED: HYDROmorphONE 0.5 MG/0.5 ML SYG IV ×2 (16:00)
[2019-01-26] MEDS ORDERED: FENTAnyl 50 MCG/ML VIAL IV ×2 (16:00)
[2019-01-26 16:07] LABS: ANISOCYTOSIS 1+ (0-0); BAND NEUTROPHILS % (M) 14 % (0-4); EOSINOPHILS % (M) 4 % (0-7); ERYTHROBLAST% (NRBC) (M) 100 % (0-0); GIANT THROMBO% (M) 20 % (0-0); LYMPHOCYTES #M 0.3 10^3/ul (0.8-2.9); LYMPHOCYTES % (M) 75 % (15-51); MICROCYTOSIS 1+ (0-0); PLASMAC%(M) 4 % (0); PLATELET ESTIMATE DECREASED; POIKILOCYTOSIS 2+ (0-0); POLYCHROMASIA 2+ (0-0); REACTIVE LYMPHOCYTES% (M) 2 % (0-0); SEGMENTED NEUTROPHILS (M) % 2 % (39-77); SMUDGE%M 37 % (0-0)
[2019-01-26 16:13] LABS: CARBON DIOXIDE 8 mmol/L (21-31)
[2019-01-26 16:54] LABS: HEMATOCRIT 32.4 % (37.0-47.0); HEMOGLOBIN 11.2 g/dl (12.0-16.0); MEAN CORPUSCULAR HEMOGLOBIN 29.1 pg (29.0-33.0); MEAN CORPUSCULAR VOLUME 84.2 fl (82.0-101.0); RED BLOOD COUNT 3.85 10^6/ul (4.20-5.40)
[2019-01-26 16:54] LABS: WHITE BLOOD COUNT 0.4 10^3/ul (4.8-10.8)
[2019-01-26 16:55] LABS: ABNORMAL IP MESSAGE 1; MEAN CORPUSCULAR HGB CONC 34.6 g/dl (32.0-37.0); PLATELET COUNT 100 10^3/UL (140-415); RED CELL DISTRIBUTION WIDTH 14.6 % (11.5-14.5)
[2019-01-26 16:57] LABS: POSITIVE DIFF @See below
[2019-01-26 16:58] LABS: ADD MAN DIFF? YES
[2019-01-26] MEDS ORDERED: FENTAnyl (DRIP) 1000 mcg/100mL 100 ML IV (17:00)
[2019-01-26] MEDS: NA BICARBONATE 8.4% 50 ML SYG IV ×3 (17:02→20:00)
[2019-01-26 17:17] LABS: ALANINE AMINOTRANSFERASE 22 IU/L (13-69); ALBUMIN 2.4 g/dl (3.3-4.9); ALBUMIN/GLOBULIN RATIO 0.85; ALKALINE PHOSPHATASE 72 IU/L (42-121); ANION GAP 15 (5-13); ASPARTATE AMINO TRANSFERASE 29 IU/L (15-46); BILIRUBIN,INDIRECT 0.4 mg/dl (0-1.1); BILIRUBIN,TOTAL 0.4 mg/dl (0.2-1.3); BLOOD UREA NITROGEN 44 mg/dl (7-20); CALCIUM 7.4 mg/dl (8.4-10.2); CARBON DIOXIDE 12 mmol/L (21-31); CHLORIDE 113 mmol/L (97-110); Estimated GFR 44 mL/min (>60); GLUCOSE 156 mg/dl (70-220); POTASSIUM 4.1 mmol/L (3.5-5.1); SODIUM 140 mmol/L (135-144); TOTAL PROTEIN 5.2 g/dl (6.1-8.1)
[2019-01-26 17:18] LABS: LACTIC ACID 6.6 mmol/L (0.5-2.0)
[2019-01-26] MEDS: VANCOMYCIN 750 MG (PMX) 250 ML IVPB (17:36)
[2019-01-26] MEDS: MIDAZOLAM (DRIP) 50 mg/50 mL 50 ML IV (17:59)
[2019-01-26 18:04] LABS: ANISOCYTOSIS 2+ (0-0); BAND NEUTROPHILS % (M) 4 % (0-4); BASOPHILS % (M) 3 % (0-2); EOSINOPHILS % (M) 7 % (0-7); ERYTHROBLAST% (NRBC) (M) 92 % (0-0); GIANT THROMBO% (M) 11 % (0-0); LYMPHOCYTES #M 0.2 10^3/ul (0.8-2.9); LYMPHOCYTES % (M) 61 % (15-51); MICROCYTOSIS 2+ (0-0); MONOCYTES % (M) 2 % (0-11); MYELOCYTES % (M) 2 % (0-0); PLATELET ESTIMATE DECREASED; POIKILOCYTOSIS 2+ (0-0); POLYCHROMASIA 3+ (0-0); PROMYELOCYTES % (M) 1 % (0-0); REACTIVE LYMPHOCYTES% (M) 3 % (0-0); SEG NEUT #M 0.1 10^3/ul (1.6-7.5); SEGMENTED NEUTROPHILS (M) % 16 % (39-77)
[2019-01-26] MEDS: MEROPENEM 500MG/50 ML (PMX) 50 ML IVPB (18:29)
[2019-01-26] MEDS: CASPOFUNGIN 70 MG in SOD CHLORIDE 0.9% 250 ML IVPB (18:30)
[2019-01-26 19:48] LABS: LACTIC ACID 9.8 mmol/L (0.5-2.0)
[2019-01-26 19:48] LABS: AADO2 Arterial 86.1 mmHg (7.0-24.0); Arterial Base Excess -16.2 mmol/L (-3.0-3); Arterial Blood Gas Oxygen Sat 98.4 mmHG (95.0-98.0); Arterial COHb 0.2 % (0.0-3.0); Arterial Fraction of Oxyhgb 98.1 % (93.0-99.0); Arterial MetHb 0.1 % (0.0-1.5); Arterial pCO2 20.7 mmhg (35-45); MODE VENT - AC; Site A-Line
[2019-01-26 20:48] LABS: IMMEDIATE SPIN CROSSMATCH 1 7
[2019-01-26] MEDS: NORepinephrine 32 MG in SOD CHLORIDE 0.9% 218 ML IV (21:59)
[2019-01-26 22:55] LABS: HEMATOCRIT 28.4 % (37.0-47.0); HEMOGLOBIN 9.7 g/dl (12.0-16.0)
[2019-01-26 23:45] LABS: AADO2 Arterial 188.6 mmHg (7.0-24.0); Arterial Base Excess -18.7 mmol/L (-3.0-3); Arterial Blood Gas Oxygen Sat 98.9 mmHG (95.0-98.0); Arterial COHb 0.2 % (0.0-3.0); Arterial Fraction of Oxyhgb 98.5 % (93.0-99.0); Arterial HCO3 6.7 mmol/L (22.0-26.0); Arterial MetHb 0.2 % (0.0-1.5); Arterial pCO2 16.2 mmhg (35-45); MODE VENT - AC; Site A-Line
[2019-01-27] MEDS: PHENYLephrine 80 MG in DEXTROSE 5% 242 ML IV ×5 (00:56→18:42)
[2019-01-27] MEDS: SODIUM BICARBONATE (IV ADD) 150 MEQ in DEXTROSE 5% 1,000 ML IV ×2 (00:57→12:16)
[2019-01-27] MEDS: SOD CHLORIDE 0.9% 1,000 ML IV ×4 (02:01→09:29)
[2019-01-27] MEDS: MIDAZOLAM (DRIP) 50 mg/50 mL 50 ML IV ×4 (03:16→20:07)
[2019-01-27] MEDS: VANCOMYCIN 750 MG (PMX) 250 ML IVPB ×2 (03:58→16:07)
[2019-01-27 05:01] LABS: ABNORMAL IP MESSAGE 1; HEMATOCRIT 28.8 % (37.0-47.0); HEMOGLOBIN 9.7 g/dl (12.0-16.0); MEAN CORPUSCULAR HGB CONC 33.7 g/dl (32.0-37.0); MEAN CORPUSCULAR VOLUME 86.2 fl (82.0-101.0); MEAN PLATELET VOLUME 10.4 fl (7.4-10.4); PLATELET COUNT 53 10^3/UL (140-415); RED BLOOD COUNT 3.34 10^6/ul (4.20-5.40); RED CELL DISTRIBUTION WIDTH 15.5 % (11.5-14.5)
[2019-01-27 05:01] LABS: WHITE BLOOD COUNT 0.5 10^3/ul (4.8-10.8)
[2019-01-27 05:08] LABS: ADD MAN DIFF? YES; POSITIVE DIFF @See below
[2019-01-27 05:27] LABS: ALANINE AMINOTRANSFERASE 181 IU/L (13-69); ALKALINE PHOSPHATASE 53 IU/L (42-121); ANION GAP 23 (5-13); ASPARTATE AMINO TRANSFERASE 274 IU/L (15-46); BILIRUBIN,INDIRECT 0.4 mg/dl (0-1.1); BILIRUBIN,TOTAL 0.5 mg/dl (0.2-1.3); BLOOD UREA NITROGEN 41 mg/dl (7-20); CHLORIDE 114 mmol/L (97-110); GLUCOSE 151 mg/dl (70-220); POTASSIUM 4.3 mmol/L (3.5-5.1); SODIUM 143 mmol/L (135-144); TOTAL PROTEIN 4.5 g/dl (6.1-8.1)
[2019-01-27 05:28] LABS: MAGNESIUM 2.1 mg/dl (1.7-2.5)
[2019-01-27 05:28] LABS: PHOSPHORUS 5.1 mg/dl (2.5-4.9)
[2019-01-27 05:34] LABS: Estimated GFR 43 mL/min (>60)
[2019-01-27 05:43] LABS: LACTIC ACID 17.1 mmol/L (0.5-2.0)
[2019-01-27 05:44] LABS: CARBON DIOXIDE 6 mmol/L (21-31); CREATININE 1.31 mg/dl (0.44-1.00)
[2019-01-27] MEDS: metroNIDAZOLE 500 MG/NS (PMX) 100 ML IVPB ×2 (05:57→13:51)
[2019-01-27 08:27] LABS: AADO2 Arterial 76.9 mmHg (7.0-24.0); Arterial Base Excess -19.6 mmol/L (-3.0-3); Arterial Blood Gas Oxygen Sat 96.9 mmHG (95.0-98.0); Arterial COHb 0.3 % (0.0-3.0); Arterial Fraction of Oxyhgb 96.4 % (93.0-99.0); Arterial MetHb 0.2 % (0.0-1.5); Arterial pCO2 19.4 mmhg (35-45); MODE VENT - AC; Site A-Line
[2019-01-27] MEDS: METHYLNALTREXONE 12 MG/0.6 ML VIAL SC ×2 (08:30→09:35)
[2019-01-27] MEDS ORDERED: NA BICARBONATE 8.4% 50 ML SYG (08:33)
[2019-01-27] MEDS: EPINEPHrine 4 MG in DEXTROSE 5% 246 ML IV (08:37)
[2019-01-27] MEDS: NA BICARBONATE 8.4% 50 ML SYG IV (08:42)
[2019-01-27 08:50] LABS: ANISOCYTOSIS 1+ (0-0); BAND NEUTROPHILS % (M) 1 % (0-4); BURR CELLS 3+ (0-0); EOSINOPHILS % (M) 1 % (0-7); ERYTHROBLAST% (NRBC) (M) 448 % (0-0); GIANT THROMBO% (M) 2 % (0-0); HYPOCHROMASIA 1+ (0-0); LYMPHOCYTES #M 0.4 10^3/ul (0.8-2.9); LYMPHOCYTES % (M) 95 % (15-51); MICROCYTOSIS 1+ (0-0); PLATELET ESTIMATE SIG DECREASED; POIKILOCYTOSIS 3+ (0-0); POLYCHROMASIA 2+ (0-0); SEGMENTED NEUTROPHILS (M) % 3 % (39-77); SMUDGE%M 26 % (0-0); SPHEROCYTES 1+ (0-0)
[2019-01-27] MEDS: VASOPRESSIN 60 UNIT in DEXTROSE 5% 57 ML IV (09:30)
[2019-01-27] MEDS: ACCU-CHEK XX (09:31)
[2019-01-27] MEDS: SODIUM HYPOCHLORITE (1/40) 1 APPLIC BTL IRR (09:31)
[2019-01-27] MEDS: MEROPENEM 500MG/50 ML (PMX) 50 ML IVPB ×2 (09:36→21:10)
[2019-01-27 09:46] LABS: LACTIC ACID 18.2 mmol/L (0.5-2.0)
[2019-01-27] MEDS: FAMOTIDINE 20 MG INJ IV ×2 (09:47→21:10)
[2019-01-27] MEDS: CALCIUM GLUCONATE 10% 2 GM in DEXTROSE 5% 100 ML IVPB (10:35)
[2019-01-27] MEDS: ACETAMINOPHEN 1000MG/100ML IV 100 ML IVPB (12:17)
[2019-01-27 13:15] LABS: D-DIMER > 10000.00 ng/ml (<460)
[2019-01-27] MEDS: NORepinephrine 32 MG in SOD CHLORIDE 0.9% 218 ML IV (14:09)
[2019-01-27] MEDS: TPN 1,000 ML IV (14:38)
[2019-01-27 15:46] LABS: VANCOMYCIN,TROUGH 18.4 ug/ml (10.0-20.0)
[2019-01-27] MEDS: CASPOFUNGIN 50 MG in SOD CHLORIDE 0.9% 250 ML IVPB (16:04)
[2019-01-27] MEDS ORDERED: INSULIN HUMAN REGULAR 100 UNIT in SOD CHLORIDE 0.9% 99 ML IV (17:00)
[2019-01-27] MEDS ORDERED: ACCU-CHEK XX (17:00)
[2019-01-27] MEDS ORDERED: DEXTROSE 50% 50 ML SYRINGE IV ×4 (17:00→21:30)
[2019-01-27] MEDS: [UNRECOGNIZED DRUG - OTHER] XX (20:44)
[2019-01-27] MEDS: VASOPRESSIN 60 UNIT in SOD CHLORIDE 0.9% 57 ML IV (20:50)
[2019-01-27] MEDS ORDERED: DEXAMETHASONE 4 MG/ML 20 MG in SOD CHLORIDE 0.9% 50 ML IVPB (21:00)
[2019-01-27] MEDS: SODIUM BICARBONATE (IV ADD) 150 MEQ in SOD CHLORIDE 0.9% 1,000 ML IV (21:10)
[2019-01-27] MEDS ORDERED: GLUCOSE GEL 15 GRAM TUBE PO ×2 (21:30)
[2019-01-27] MEDS ORDERED: GLUCAGON 1 MG INJ IM (21:30)
[2019-01-27] MEDS ORDERED: GLUCOSE GEL 15 GRAM TUBE BUCCAL (21:30)
[2019-01-28] MEDS ORDERED: INSULIN ASPART [NOVOLOG] 3 ML PEN SC
[2019-01-28] MEDS: Insulin NOVOLOG SS MODERATE Algorithm(NPO/TPN/ENTERAL FEEDS) SC ×4 (00:38→17:39)
[2019-01-28] MEDS: PHENYLephrine 80 MG in SOD CHLORIDE 0.9% 242 ML IV ×3 (00:45→22:10)
[2019-01-28] MEDS: MIDAZOLAM (DRIP) 50 mg/50 mL 50 ML IV ×2 (03:52→17:28)
[2019-01-28 05:49] LABS: ABNORMAL IP MESSAGE 1; HEMATOCRIT 29.2 % (37.0-47.0); HEMOGLOBIN 10.3 g/dl (12.0-16.0); MEAN CORPUSCULAR HEMOGLOBIN 28.5 pg (29.0-33.0); MEAN CORPUSCULAR HGB CONC 35.3 g/dl (32.0-37.0); MEAN CORPUSCULAR VOLUME 80.7 fl (82.0-101.0); MEAN PLATELET VOLUME 9.6 fl (7.4-10.4); NUCLEATED RED BLOOD CELLS% 91.8 /100WBC (0.0-0.0); RED BLOOD COUNT 3.62 10^6/ul (4.20-5.40); RED CELL DISTRIBUTION WIDTH 15.9 % (11.5-14.5)
[2019-01-28 05:49] LABS: WHITE BLOOD COUNT 0.5 10^3/ul (4.8-10.8)
[2019-01-28 05:51] LABS: LACTIC ACID 13.7 mmol/L (0.5-2.0)
[2019-01-28 05:52] LABS: ADD MAN DIFF? YES; PLATELET COUNT 20 10^3/UL (140-415); POSITIVE DIFF @See below
[2019-01-28] MEDS: VASOPRESSIN 60 UNIT in SOD CHLORIDE 0.9% 57 ML IV ×3 (07:30→17:53)
[2019-01-28 07:38] LABS: ANION GAP 20 (5-13); BLOOD UREA NITROGEN 54 mg/dl (7-20); CARBON DIOXIDE 22 mmol/L (21-31); CHLORIDE 105 mmol/L (97-110); CREATININE 1.74 mg/dl (0.44-1.00); Estimated GFR 31 mL/min (>60); GLUCOSE 128 mg/dl (70-220); MAGNESIUM 1.6 mg/dl (1.7-2.5); PHOSPHORUS 3.3 mg/dl (2.5-4.9); POTASSIUM 3.1 mmol/L (3.5-5.1); SODIUM 147 mmol/L (135-144)
[2019-01-28] MEDS: SODIUM BICARBONATE (IV ADD) 150 MEQ in SOD CHLORIDE 0.9% 1,000 ML IV ×2 (07:44→18:51)
[2019-01-28 07:57] LABS: ALKALINE PHOSPHATASE 89 IU/L (42-121); BILIRUBIN,INDIRECT 0.4 mg/dl (0-1.1); BILIRUBIN,TOTAL 0.5 mg/dl (0.2-1.3); CALCIUM 5.6 mg/dl (8.4-10.2); TOTAL PROTEIN 4.2 g/dl (6.1-8.1)
[2019-01-28 08:00] LABS: ANISOCYTOSIS 1+ (0-0); BURR CELLS 2+ (0-0); ERYTHROBLAST% (NRBC) (M) 544 % (0-0); GIANT THROMBO% (M) 4 % (0-0); LYMPHOCYTES #M 0.3 10^3/ul (0.8-2.9); LYMPHOCYTES % (M) 64 % (15-51); MONOCYTES % (M) 8 % (0-11); OVALOCYTES 1+ (0-0); PLATELET ESTIMATE SIG DECREASED; POIKILOCYTOSIS 2+ (0-0); POLYCHROMASIA 2+ (0-0); RBC MORPHOLOGY COMMENT @See below; REACTIVE LYMPHOCYTES #M 0.1 10^3/ul (0.0-0.0); REACTIVE LYMPHOCYTES% (M) 28 % (0-0); SMUDGE%M 28 % (0-0); TARGET CELLS 1+ (0-0); WBC MORPHOLOGY COMMENT @See below
[2019-01-28] MEDS: EPINEPHrine 4 MG in SOD CHLORIDE 0.9% 246 ML IV ×2 (08:04→14:00)
[2019-01-28 08:06] LABS: ALANINE AMINOTRANSFERASE 1951 IU/L (13-69)
[2019-01-28] MEDS: VANCOMYCIN 500 MG (PMX) 100 ML IVPB (08:22)
[2019-01-28] MEDS: SODIUM HYPOCHLORITE (1/40) 1 APPLIC BTL IRR (08:25)
[2019-01-28] MEDS: FAMOTIDINE 20 MG INJ IV ×2 (08:25→20:51)
[2019-01-28] MEDS: MEROPENEM 500MG/50 ML (PMX) 50 ML IVPB ×2 (08:26→20:51)
[2019-01-28 08:34] LABS: ASPARTATE AMINO TRANSFERASE 2170 IU/L (15-46)
[2019-01-28 09:54] LABS: AADO2 Arterial 65.8 mmHg (7.0-24.0); Arterial Base Excess -3.3 mmol/L (-3.0-3); Arterial Blood Gas Oxygen Sat 97.5 mmHG (95.0-98.0); Arterial COHb 0.2 % (0.0-3.0); Arterial Fraction of Oxyhgb 96.9 % (93.0-99.0); Arterial MetHb 0.4 % (0.0-1.5); Arterial pCO2 25.9 mmhg (35-45); MODE VENT - AC; Site A-Line
[2019-01-28] MEDS: POTASSIUM CHLORIDE 100 ML IVPB ×2 (10:09→11:39)
[2019-01-28] MEDS: MAGNESIUM SULFATE 2 GM/50 ML 50 ML IVPB (10:10)
[2019-01-28 10:49] LABS: IONIZED CALCIUM 0.7 mmol/L (1.1-1.4)
[2019-01-28] MEDS: CALCIUM GLUCONATE 10% 2 GM in DEXTROSE 5% 100 ML IVPB (11:39)
[2019-01-28] MEDS: NORepinephrine 32 MG in SOD CHLORIDE 0.9% 218 ML IV (14:44)
[2019-01-28] MEDS: TPN 1,000 ML IV (14:46)
[2019-01-28] MEDS: CASPOFUNGIN 50 MG in SOD CHLORIDE 0.9% 250 ML IVPB (17:28)
[2019-01-29] MEDS: Insulin NOVOLOG SS MODERATE Algorithm(NPO/TPN/ENTERAL FEEDS) SC ×5 (00:34→23:41)
[2019-01-29] MEDS: MIDAZOLAM (DRIP) 50 mg/50 mL 50 ML IV (03:08)
[2019-01-29] MEDS: SODIUM BICARBONATE (IV ADD) 150 MEQ in SOD CHLORIDE 0.9% 1,000 ML IV (03:57)
[2019-01-29 05:46] LABS: ABNORMAL IP MESSAGE 1; HEMATOCRIT 28.9 % (37.0-47.0); HEMOGLOBIN 10.2 g/dl (12.0-16.0); MEAN CORPUSCULAR HEMOGLOBIN 28.8 pg (29.0-33.0); MEAN CORPUSCULAR HGB CONC 35.3 g/dl (32.0-37.0); MEAN CORPUSCULAR VOLUME 81.6 fl (82.0-101.0); NUCLEATED RED BLOOD CELLS% 5.4 /100WBC (0.0-0.0); RED BLOOD COUNT 3.54 10^6/ul (4.20-5.40); RED CELL DISTRIBUTION WIDTH 16.1 % (11.5-14.5)
[2019-01-29 06:07] LABS: ADD MAN DIFF? YES; POSITIVE DIFF @See below
[2019-01-29 06:09] LABS: ANION GAP 18 (5-13); BLOOD UREA NITROGEN 57 mg/dl (7-20); CARBON DIOXIDE 29 mmol/L (21-31); CHLORIDE 105 mmol/L (97-110); CREATININE 1.64 mg/dl (0.44-1.00); Estimated GFR 33 mL/min (>60); GLUCOSE 136 mg/dl (70-220); MAGNESIUM 1.7 mg/dl (1.7-2.5); PHOSPHORUS 3.5 mg/dl (2.5-4.9); PLATELET COUNT 17 10^3/UL (140-415); SODIUM 152 mmol/L (135-144)
[2019-01-29 06:14] LABS: POTASSIUM 2.6 mmol/L (3.5-5.1)
[2019-01-29 06:56] LABS: VANCOMYCIN,RANDOM 16.9 ug/ml
[2019-01-29] MEDS: POTASSIUM CHLORIDE 100 ML IVPB ×5 (07:31→22:00)
[2019-01-29] MEDS ORDERED: POTASSIUM CHLORIDE IV (08:00)
[2019-01-29] MEDS ORDERED: [UNRECOGNIZED DRUG - OTHER] IV (08:00)
[2019-01-29] MEDS ORDERED: SODIUM BICARBONATE IV (08:00)
[2019-01-29] MEDS: FAMOTIDINE 20 MG INJ IV ×2 (08:18→21:16)
[2019-01-29] MEDS: DEXTROSE 5% 1,000 ML IV ×2 (08:18→21:22)
[2019-01-29] MEDS: SODIUM HYPOCHLORITE (1/40) 1 APPLIC BTL IRR (08:18)
[2019-01-29] MEDS: MEROPENEM 500MG/50 ML (PMX) 50 ML IVPB ×2 (08:27→21:17)
[2019-01-29] MEDS: METHYLNALTREXONE 12 MG/0.6 ML VIAL SC (08:30)
[2019-01-29] MEDS: MAGNESIUM SULFATE 2 GM/50 ML 50 ML IVPB (08:31)
[2019-01-29] MEDS: TPN 1,000 ML IV ×2 (08:35→11:47)
[2019-01-29] MEDS ORDERED: FENTAnyl (DRIP) 1000 mcg/100mL 100 ML IV (09:00)
[2019-01-29] MEDS: CALCIUM GLUCONATE 10% 1 GM in DEXTROSE 5% 100 ML IVPB (10:02)
[2019-01-29] MEDS: VANCOMYCIN 500 MG (PMX) 100 ML IVPB (12:37)
[2019-01-29 13:16] LABS: ANION GAP 17 (5-13); BLOOD UREA NITROGEN 58 mg/dl (7-20); CALCIUM 6.5 mg/dl (8.4-10.2); CARBON DIOXIDE 30 mmol/L (21-31); CHLORIDE 105 mmol/L (97-110); CREATININE 1.54 mg/dl (0.44-1.00); Estimated GFR 36 mL/min (>60); GLUCOSE 172 mg/dl (70-220); SODIUM 152 mmol/L (135-144)
[2019-01-29] MEDS: HYDROCORTISONE 100 MG INJ IV ×2 (13:17→22:00)
[2019-01-29 13:21] LABS: POTASSIUM 2.8 mmol/L (3.5-5.1)
[2019-01-29] MEDS: LINEZOLID 600 MG/D5W (PMX) 300 ML IVPB ×2 (13:37→21:18)
[2019-01-29] MEDS: VASOPRESSIN 60 UNIT in SOD CHLORIDE 0.9% 57 ML IV ×2 (14:46→21:00)
[2019-01-29] MEDS: CASPOFUNGIN 50 MG in SOD CHLORIDE 0.9% 250 ML IVPB (16:43)
[2019-01-29 19:55] LABS: ANION GAP 14 (5-13); BLOOD UREA NITROGEN 64 mg/dl (7-20); CALCIUM 6.4 mg/dl (8.4-10.2); CARBON DIOXIDE 31 mmol/L (21-31); CHLORIDE 103 mmol/L (97-110); CREATININE 1.38 mg/dl (0.44-1.00); Estimated GFR 40 mL/min (>60); GLUCOSE 228 mg/dl (70-220); SODIUM 148 mmol/L (135-144)
[2019-01-29 20:03] LABS: POTASSIUM 2.7 mmol/L (3.5-5.1)
[2019-01-29 20:15] LABS: MAGNESIUM 1.9 mg/dl (1.7-2.5)
[2019-01-29] MEDS: ALBUMIN HUMAN 25% 100 ML IV (23:01)
[2019-01-30] MEDS: POTASSIUM CHLORIDE 100 ML IVPB (00:09)
[2019-01-30] MEDS: TPN 1,000 ML IV (03:18)
[2019-01-30] MEDS: HYDROCORTISONE 100 MG INJ IV (05:13)
[2019-01-30] MEDS: Insulin NOVOLOG SS MODERATE Algorithm(NPO/TPN/ENTERAL FEEDS) SC (05:19)
[2019-01-30 05:38] LABS: ABNORMAL IP MESSAGE 1; HEMATOCRIT 31.4 % (37.0-47.0); HEMOGLOBIN 10.8 g/dl (12.0-16.0); MEAN CORPUSCULAR HEMOGLOBIN 28.2 pg (29.0-33.0); MEAN CORPUSCULAR HGB CONC 34.4 g/dl (32.0-37.0); NUCLEATED RED BLOOD CELLS% 2.3 /100WBC (0.0-0.0); RED BLOOD COUNT 3.83 10^6/ul (4.20-5.40); RED CELL DISTRIBUTION WIDTH 16.3 % (11.5-14.5)
[2019-01-30 05:38] LABS: WHITE BLOOD COUNT 8.3 10^3/ul (4.8-10.8)
[2019-01-30] MEDS: PHENYLephrine 80 MG in SOD CHLORIDE 0.9% 242 ML IV (05:48)
[2019-01-30 06:02] LABS: LACTIC ACID 8.9 mmol/L (0.5-2.0)
[2019-01-30] MEDS: ALBUMIN HUMAN 25% 100 ML IV (06:02)
[2019-01-30 06:06] LABS: ANION GAP 11 (5-13); BLOOD UREA NITROGEN 67 mg/dl (7-20); CALCIUM 6.8 mg/dl (8.4-10.2); CARBON DIOXIDE 33 mmol/L (21-31); CHLORIDE 101 mmol/L (97-110); CREATININE 1.37 mg/dl (0.44-1.00); Estimated GFR 41 mL/min (>60); GLUCOSE 184 mg/dl (70-220); MAGNESIUM 1.8 mg/dl (1.7-2.5); PHOSPHORUS 3.5 mg/dl (2.5-4.9); SODIUM 145 mmol/L (135-144)
[2019-01-30 06:18] LABS: POTASSIUM 2.7 mmol/L (3.5-5.1)
[2019-01-30 06:40] LABS: POSITIVE DIFF @See below
[2019-01-30 06:41] LABS: PLATELET COUNT 14 10^3/UL (140-415)
[2019-01-30 06:42] LABS: ADD MAN DIFF? YES
[2019-01-30] MEDS: MAGNESIUM SULFATE 2 GM/50 ML 50 ML IVPB (06:46)
[2019-01-30 07:11] LABS: AADO2 Arterial 71.6 mmHg (7.0-24.0); Arterial Base Excess 7.8 mmol/L (-3.0-3); Arterial Blood Gas Oxygen Sat 96.8 mmHG (95.0-98.0); Arterial COHb 0.3 % (0.0-3.0); Arterial Fraction of Oxyhgb 96.3 % (93.0-99.0); Arterial HCO3 31.4 mmol/L (22.0-26.0); Arterial MetHb 0.2 % (0.0-1.5); Arterial pCO2 40.3 mmhg (35-45); MODE VENT - AC; Site A-Line
[2019-01-30] MEDS ORDERED: LORAZEPAM 1 MG TAB PO (08:00)
[2019-01-30] MEDS ORDERED: LORAZEPAM 2 MG INJ IV (08:30)
[2019-01-30] MEDS ORDERED: POTASSIUM CHLORIDE 100 ML IVPB (09:00)
[2019-01-30 09:02] LABS: ANISOCYTOSIS 1+ (0-0); BAND NEUTROPHILS #M 3.3 10^3/ul (0.0-0.6); BAND NEUTROPHILS % (M) 40 % (0-4); EOSINOPHILS % (M) 1 % (0-7); ERYTHROBLAST% (NRBC) (M) 2 % (0-0); GIANT THROMBO% (M) 3 % (0-0); LYMPHOCYTES #M 0.2 10^3/ul (0.8-2.9); LYMPHOCYTES % (M) 3 % (15-51); METAMYELOCYTES #M 0.4 10^3/ul (0.0-0.0); METAMYELOCYTES %M 5 % (0-0); MONOCYTE #M 0.8 10^3/ul (0.3-0.9); MONOCYTES % (M) 10 % (0-11); MYELOCYTES #M 0.2 10^3/ul (0.0-0.0); MYELOCYTES % (M) 3 % (0-0); OVALOCYTES 1+ (0-0); PLATELET ESTIMATE DECREASED; POIKILOCYTOSIS 1+ (0-0); POLYCHROMASIA 1+ (0-0); PROMYELOCYTES #M 0.3 10^3/ul (0-0); PROMYELOCYTES % (M) 4 % (0-0); SEGMENTED NEUTROPHILS (M) % 33 % (39-77); SMUDGE%M 3 % (0-0); STOMATOCYTES 1+ (0-0)
[2019-01-30] MEDS: morphine (DRIP) 100 MG/100 ML 100 ML IV (14:17)
[2019-01-31] MEDS ORDERED: DIMETHICONE STICK TOP (08:00)
[2019-01-31] MEDS ORDERED: ARTIFICIAL TEARS 15 ML OPH BOTH EYES (08:00)
[2019-01-31] MEDS ORDERED: LORAZEPAM 2 MG INJ IV (08:00)
[2019-01-31] MEDS ORDERED: HYDROmorphONE 1 MG/ML SYG IV (08:00)
[2019-01-31] MEDS ORDERED: HALOPERIDOL 5 MG INJ IM (08:00)
[2019-01-31] MEDS ORDERED: ONDANSETRON 4 MG INJ IV (08:00)
[2019-01-31] MEDS ORDERED: DIPHENHYDRAMINE 50 MG INJ IV (08:00)
[2019-01-31] MEDS: SCOPOLAMINE 1.5 MG PATCH TRANSDERM (10:44)
== END 2019-01-31 13:05 | disposition expired | DRG 356 ==
LOC: MS1 01-04 16:15 → 2NE 01-30 18:40 → E/R 12:46 → 6WM 01-24 18:57 → ICU 01-26 04:37 → 6WM 18:42
PROC: 0D798DZ Dilation of Duodenum with Intraluminal Device, Via Natural or Artificial Opening Endoscopic (ICD-10-PCS; principal; 2018-12-30 11:00)
PROC: 0JB80ZZ Excision of Abdomen Subcutaneous Tissue and Fascia, Open Approach (ICD-10-PCS; 2018-12-30 11:00)
PROC: 0J980ZZ Drainage of Abdomen Subcutaneous Tissue and Fascia, Open Approach (ICD-10-PCS; 2018-12-30 11:00)
PROC: 0DD78ZX Extraction of Stomach, Pylorus, Via Natural or Artificial Opening Endoscopic, Diagnostic (ICD-10-PCS; 2018-12-30 11:00)
PROC: 0DB98ZX Excision of Duodenum, Via Natural or Artificial Opening Endoscopic, Diagnostic (ICD-10-PCS; 2018-12-30 11:00)
PROC: 0DB78ZX Excision of Stomach, Pylorus, Via Natural or Artificial Opening Endoscopic, Diagnostic (ICD-10-PCS; 2018-12-30 11:00)
PROC: 0DHA3UZ Insertion of Feeding Device into Jejunum, Percutaneous Approach (ICD-10-PCS; 2018-12-30 11:00)
PROC: 30233K1 Transfusion of Nonautologous Frozen Plasma into Peripheral Vein, Percutaneous Approach (ICD-10-PCS; 2018-12-30 11:00)
PROC: 30233N1 Transfusion of Nonautologous Red Blood Cells into Peripheral Vein, Percutaneous Approach (ICD-10-PCS; 2018-12-30 11:00)
PROC: 5A1945Z Respiratory Ventilation, 24-96 Consecutive Hours (ICD-10-PCS; 2018-12-30 11:00)
PROC: 0BH17EZ Insertion of Endotracheal Airway into Trachea, Via Natural or Artificial Opening (ICD-10-PCS; 2018-12-30 11:00)
DX: C78.89 Secondary malignant neoplasm of other digestive organs (principal); E43 Unspecified severe protein-calorie malnutrition; A41.9 Sepsis, unspecified organism; R65.21 Severe sepsis with septic shock; K65.1 Peritoneal abscess; J96.01 Acute respiratory failure with hypoxia; D61.810 Antineoplastic chemotherapy induced pancytopenia; N17.0 Acute kidney failure with tubular necrosis; G92 Toxic encephalopathy; K31.1 Adult hypertrophic pyloric stenosis; E87.1 Hypo-osmolality and hyponatremia; T81.43XA Infection following a procedure, organ and space surgical site, initial encounter; C56.1 Malignant neoplasm of right ovary; C56.2 Malignant neoplasm of left ovary; E87.0 Hyperosmolality and hypernatremia; E87.4 Mixed disorder of acid-base balance; K56.7 Ileus, unspecified; E87.6 Hypokalemia; K25.9 Gastric ulcer, unspecified as acute or chronic, without hemorrhage or perforation; K29.60 Other gastritis without bleeding; K59.00 Constipation, unspecified; R11.2 Nausea with vomiting, unspecified; Z66 Do not resuscitate; Z51.5 Encounter for palliative care; Z68.20 Body mass index [BMI] 20.0-20.9, adult; Z90.3 Acquired absence of stomach [part of]
CPT/HCPCS: 36430; 36569; 36600; 71045; 74018; 74177; 74240; 74330; 76775; 76937; 80048; 80053; 80069; 80076; 80202; 81001; 81003; 82043; 82150; 82330; 82378; 82607; 82728; 82803; 82962; 83036; 83540; 83605; 83690; 83735; 83935; 84100; 84134; 84155; 84300; 84478; 84484; 84703; 85014; 85018; 85025; 85378; 85384; 85610; 85730; 86301; 86304; 86850; 86900; 86901; 86920; 87040; 87070; 87075; 87081; 87086; 87102; 88305; 88312; 88341; 88342; 93005; 93306; 94002; 94003; 94770; 96361; 96365; 96375; 97116; 97161; 97530; 99291-25; J9190